=== PATIENT | female | born 2000 | race Two or more races ===

== ENCOUNTER 2021-07-23 17:32 | Inpatient (IN) | payer OTHER, SELFPAY ==
[2021-07-23 17:45] VITALS: BP 117/58; PULSE 77; RESP 18; TEMP 36.7; O2SAT 97
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
[2021-07-24] MEDS: Acetaminophen 325 MG TABLET 650 MG PO ×2 (00:23→10:15)
[2021-07-24] MEDS: traZODone HCL 50 MG TABLET PO ×4 (01:44→23:32)
--- NOTE | 2021-07-24 01:56 | PC.NURSE ---
Patient refused Flu Vaccine. Refused Flagyl.
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
[2021-07-24 08:30] VITALS: BP 127/70; PULSE 80; RESP 16; TEMP 36.9; O2SAT 98
[2021-07-24] MEDS: metroNIDAZOLE 500 MG TABLET PO ×2 (11:33→22:02)
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
--- NOTE | 2021-07-24 16:29 | HO.PM.IMCN ---
History of Present Illness Data of Consult Service Date: 07/24/21 Primary Care Provider: Unknown Physician HPI 21 year female with no medical issues admitted to inpatient psych for depression and suicide indeation. She has no acute medical issues at this time. Review of Systems Review of Systems: Gen: no fever Resp: no sob, no cough CV: no chest, no WALKER, no leg edema GI: No n/v, no abd pain Neuro: No confusion Yes all other systems are reviewed and are negative PMFSH Social History Household Members: Family Housing: House Do you presently have visiting nurse or other home services: No Unable to assess alcohol history related to: Refusing to respond Patient Tobacco Use Status: Never used Tobacco Use of substances other than those prescribed or required for medical reasons: Refusing to respond Currently Displaying Signs/Symptoms of Drug Intoxication Withdrawal: No Spiritual Healthcare Practices: Patient declined to participate in admission process. Protestant Healthcare Practices: Patient declined to participate in admission process. Cultural Healthcare Practices: Patient declined to participate in admission process. Advance Directives: No Advance Directives Information Provided: No Do you have thoughts of harming others: None Do you have a plan to hurt others: No Plan Recently lost weight without trying: Yes How much weight loss: 24-33 pounds Eating poorly because of decreased appetite: No Nutrition screen score: 5 Nutrition Risks: No Nutritional Risk Patient : No : No Poor oral hygiene: No Meds Allergies Allergy/AdvReac Type Severity Reaction Status Date / Time No Known Allergies Allergy Verified 07/23/21 18:35 Active Medications: Current Medications Acetaminophen (Acetaminophen 325 Mg Tablet) 650 mg PO Q6H PRN PRN Reason: Headache/Pain Mild Scale (1-3) Last Admin: 07/24/21 10:15 Dose: 650 mg Documented by: Al Hydroxide/Mg Hydroxide (Magnesium Hydrox/Alum Hydrox 30 Ml Oral.Susp) 30 ml PO Q6H PRN PRN Reason: Heartburn/Nausea Hydroxyzine HCl (Hydroxyzine Hcl 25 Mg Tablet) 25 mg PO Q6H PRN PRN Reason: Anxiety Magnesium Hydroxide (Milk Of Magnesia 30 Ml Oral.Susp) 30 ml PO DAILY PRN PRN Reason: Constipation Metronidazole (Metronidazole 500 Mg Tablet) 500 mg PO Q12H ROSA Stop: 07/29/21 22:59 Last Admin: 07/24/21 11:33 Dose: 500 mg Documented by: Olanzapine (Olanzapine 2.5 Mg Tablet) 2.5 mg PO BEDTIME ROSA Trazodone HCl (Trazodone Hcl 50 Mg Tablet) 50 mg PO BEDTIME PRN PRN Reason: Insomnia Last Admin: 07/24/21 02:41 Dose: 50 mg Documented by: Physical Exam Vital Signs and Narrative: Vital Signs: Last Vital Signs Temp 98.1 F 07/23/21 17:45 Pulse 77 07/23/21 17:45 Resp 18 07/23/21 17:45 BP 117/58 L 07/23/21 17:45 Pulse Ox 97 07/23/21 17:45
--- NOTE | 2021-07-24 16:48 | PM.EVENT ---
Event Note Date of Service: 07/24/21 Event Note: RN of the shift accompanied me evaluate patient. Of sound mind, she declined medical evaluation at this time. I asked that the hospitalist be recontacted if there is a need for medical evaluation.
[2021-07-24] MEDS: OLANZapine 2.5 MG TABLET PO (22:02)
[2021-07-24 22:05] VITALS: BP 101/61; PULSE 95; RESP 16; TEMP 36.5; O2SAT 98
[2021-07-25 09:00] VITALS: BP 120/62; PULSE 77; RESP 16; TEMP 37.1; O2SAT 99
--- NOTE | 2021-07-25 11:43 | HO.PSYCHPN ---
Subjective Subjective Date of Service: 07/25/21 Reason For Visit: MDD single episode, adjustment disorder Subjective Notes: Conditional Voluntary Interim History: The nursing staff reported that she slept at night. On interview, the patient reported that all and is a been med her drooling next morning, she denies over-sedation. On interview she stated that she feels is safe but she is scared of the witchcraft around of the unit. She still complains of paranoid delusions Mental Status Exam Mental Status Exam Patient Appearance: Well Grooomed Patient Orientation: Person and Situation Level of Consciousness: Awake Patient Behavior: Cooperative Mood Description: Withdrawn Affect Description: Constricted Patient Cognition Impaired: No Ability to Follow Directions: Excellent Speech Pattern: Clear Memory Description: Intact Hallucinations: Auditory Delusions: Paranoid Ideation Thought Process: Linear Thought Content: positive for Circumstantial Judgement: Fair Diagnostics Vital Signs (24Hr): Vital Signs - 24 hr 07/24/21 22:05 Temperature 97.7 F Pulse Rate 95 Respiratory Rate 16 Blood Pressure 101/61 Pulse Oximetry 98 Medications Medications Current Medications Acetaminophen (Acetaminophen 325 Mg Tablet) 650 mg PO Q6H PRN PRN Reason: Headache/Pain Mild Scale (1-3) Last Admin: 07/24/21 10:15 Dose: 650 mg Documented by: Al Hydroxide/Mg Hydroxide (Magnesium Hydrox/Alum Hydrox 30 Ml Oral.Susp) 30 ml PO Q6H PRN PRN Reason: Heartburn/Nausea Hydroxyzine HCl (Hydroxyzine Hcl 25 Mg Tablet) 25 mg PO Q6H PRN PRN Reason: Anxiety Magnesium Hydroxide (Milk Of Magnesia 30 Ml Oral.Susp) 30 ml PO DAILY PRN PRN Reason: Constipation Metronidazole (Metronidazole 500 Mg Tablet) 500 mg PO Q12H ROSA Stop: 07/29/21 22:59 Last Admin: 07/24/21 22:02 Dose: 500 mg Documented by: Olanzapine (Olanzapine 2.5 Mg Tablet) 2.5 mg PO BEDTIME ROSA Last Admin: 07/24/21 22:02 Dose: 2.5 mg Documented by: Trazodone HCl (Trazodone Hcl 50 Mg Tablet) 50 mg PO BEDTIME PRN PRN Reason: Insomnia Last Admin: 07/24/21 23:32 Dose: 50 mg Documented by: Allergies Allergies Allergy/AdvReac Type Severity Reaction Status Date / Time No Known Allergies Allergy Verified 07/23/21 18:35 Assessment & Plan Assessment & Plan (1) Psychosis: Status: Acute Code(s): F29 - Unspecified psychosis not due to a substance or known physiological condition (2) Major depressive disorder: Status: Acute Code(s): F32.9 - Major depressive disorder, single episode, unspecified Plan The patient is a young adult female, referred from the community after her brother call crisis since she verbalized suicidal ideation. Initially, she was uncooperative with crisis and she was not safe. There was the report of suicidal ideation but later on, on admission we realized that the patient has the lucent thinking, disorganized thought process and paranoia. She was started on Zyprexa. Plan 1. Continue Zyprexa as prescribed. 2. Gather collateral information. 3. Reassessment with more information I spent ___20___ minutes with the patient and/or on the patient floor today, greater than?50% of which was spent counseling/coordinating care. Reason for contiued inpatient stay Substantial Risk for: inability to function, rapid decompensation and med/psych decompensation
[2021-07-25] MEDS: metroNIDAZOLE 500 MG TABLET PO ×2 (11:47→22:40)
[2021-07-25 18:00] VITALS: BP 106/60; PULSE 95; RESP 18; TEMP 36.5; O2SAT 98
[2021-07-25] MEDS: hydrOXYzine HCL 25 MG TABLET PO (22:40)
[2021-07-25] MEDS: traZODone HCL 50 MG TABLET PO ×2 (22:40→23:36)
[2021-07-26 09:22] VITALS: BP 118/69; PULSE 83; RESP 16; TEMP 36.8; O2SAT 97
[2021-07-26] MEDS: metroNIDAZOLE 500 MG TABLET PO ×2 (12:20→22:15)
--- NOTE | 2021-07-26 13:42 | P.PNPSI_ITS ---
Subjective Subjective Date of Service: 07/26/21 Reason For Visit: MDD single episode, adjustment disorder Interim History: pt seen in [facility], asked MD to see her later. MD saw another pt and then RN informed MD that pt was ready to speak with MD. pt preferred interview in her room and expressed irritation that MD did not know it was her preference for interviews to be held in her room. once in the room she sat on her bed and attempted to transcribe much of the discussion. MD educated her about psychosis and reviewed symptoms she has been exhibiting which are consistent with the diagnosis. pt was very defensive and critical and was not receptive to the information. she had constructed a cross, which was on her bed-side table, and she informed MD that xu on that cross. she also made a strong statement to MD toward the close of the interview, in the name of xu felix! she scoffed at MD's opinions and was generally derisive. she stated she did not like the medication which had been provided for her and she would not be taking it. she requested melatonin, which was ordered. per staff, according to pt's brother pt has recently become depressed and psychotic. both parents have psychotic disorder. expressing SI recently, lost 27 lbs in past few months. poor boundaries with male peers. Mental Status Exam Mental Status Exam Narrative: midrisherin-quentin byers, hospital attire on overtop. adequately groomed. cooperative with interview. fair eye contact. no PMA/PMR. speech incr in amount, nml rate and tone, decr latency. thoughts religiously preoccupied, paranoid. appeared delusional regarding MD's intentions toward her. affect angry/irritable. no SI/HI/AVH expressed. Diagnostics Vital Signs (24Hr): Vital Signs - 24 hr 07/25/21 18:00 07/26/21 09:22 Temperature 97.7 F 98.3 F Pulse Rate 95 83 Respiratory Rate 18 16 Blood Pressure 106/60 118/69 Pulse Oximetry 98 97 Medications Medications Current Medications Acetaminophen (Acetaminophen 325 Mg Tablet) 650 mg PO Q6H PRN PRN Reason: Headache/Pain Mild Scale (1-3) Last Admin: 07/24/21 10:15 Dose: 650 mg Documented by: Al Hydroxide/Mg Hydroxide (Magnesium Hydrox/Alum Hydrox 30 Ml Oral.Susp) 30 ml PO Q6H PRN PRN Reason: Heartburn/Nausea Hydroxyzine HCl (Hydroxyzine Hcl 25 Mg Tablet) 25 mg PO Q6H PRN PRN Reason: Anxiety Last Admin: 07/25/21 22:40 Dose: 25 mg Documented by: Magnesium Hydroxide (Milk Of Magnesia 30 Ml Oral.Susp) 30 ml PO DAILY PRN PRN Reason: Constipation Melatonin (Melatonin 3 Mg Tablet) 3 mg PO BEDTIME ROSA Metronidazole (Metronidazole 500 Mg Tablet) 500 mg PO Q12H ROSA Stop: 07/29/21 22:59 Last Admin: 07/26/21 12:20 Dose: 500 mg Documented by: Patient Own Med- (Daily Probiotic) 1 each PO DAILY ROSA Last Admin: 07/26/21 09:13 Dose: 1 each Documented by: Olanzapine (Olanzapine 2.5 Mg Tablet) 2.5 mg PO BEDTIME ROSA Last Admin: 07/25/21 22:42 Dose: Not Given Documented by: Trazodone HCl (Trazodone Hcl 50 Mg Tablet) 50 mg PO BEDTIME PRN PRN Reason: Insomnia Last Admin: 07/25/21 23:36 Dose: 50 mg Documented by: Allergies Allergies Allergy/AdvReac Type Severity Reaction Status Date / Time No Known Allergies Allergy Verified 07/23/21 18:35 Assessment & Plan Assessment & Plan (1) Psychosis: Status: Acute Code(s): F29 - Unspecified psychosis not due to a substance or known physiological condition (2) Major depressive disorder: Status: Acute Code(s): F32.9 - Major depressive disorder, single episode, unspecified Plan The patient is a young adult female, referred from the community after her brother call crisis since she verbalized suicidal ideation. Initially, she was uncooperative with crisis and she was not safe. There was the report of suicidal ideation but later on, on admission we realized that the patient has the lucent thinking, disorganized thought process and paranoia. She was started on Zyprexa. Plan 1. Continue Zyprexa as prescribed. 2. Gather collateral information. 3. Reassessment with more information I spent ___25___ minutes with the patient and/or on the patient floor today, greater than?50% of which was spent counseling/coordinating care. Reason for contiued inpatient stay Substantial Risk for: harm to self, inability to function and rapid decompensation
[2021-07-26] MEDS: Acetaminophen 325 MG TABLET 650 MG PO (16:52)
[2021-07-26 16:57] VITALS: BMI 19.9
[2021-07-26] MEDS: hydrOXYzine HCL 25 MG TABLET PO (17:53)
[2021-07-26 18:00] VITALS: BP 117/72; PULSE 88; RESP 16; TEMP 36.7; O2SAT 98
[2021-07-26] MEDS: OLANZapine 2.5 MG TABLET PO (20:06)
[2021-07-26] MEDS: Milk of Magnesia 30 ML ORAL.SUSP PO (20:06)
[2021-07-26] MEDS: Ibuprofen 600 MG TABLET PO (20:06)
[2021-07-26] MEDS: Melatonin 3 MG TABLET PO (20:06)
[2021-07-26] MEDS: traZODone HCL 50 MG TABLET PO ×2 (21:15→22:15)
[2021-07-27] MEDS: metroNIDAZOLE 500 MG TABLET PO ×2 (11:18→21:35)
[2021-07-27] MEDS: hydrOXYzine HCL 25 MG TABLET PO ×2 (11:53→21:35)
[2021-07-27] MEDS: Acetaminophen 325 MG TABLET 650 MG PO ×2 (12:48→18:49)
[2021-07-27] MEDS: Ibuprofen 600 MG TABLET PO (13:55)
[2021-07-27] MEDS: LORazepam 1 MG TABLET 2 MG PO (15:51)
--- NOTE | 2021-07-27 17:16 | HO.PSYCHPN ---
Subjective Subjective Date of Service: 07/27/21 Reason For Visit: MDD single episode, adjustment disorder Interim History: mtg held with brother today for 1 hour, SW present. met with pt in her room. relentlessly critical, negative regarding everything about her care here. saying she needs some medication, which she later explains would be to help her relax here. saying a peer talks about worshipping the devil and put his hands around her throat (no evidence to support the claim). nothing helps, nothing works. per staff, denies anx/dep. cut short 1:1 mtg. safe, visible in milieu. watching TV, attending groups. irritable, withdrawn. slept 6-7 hours. religiously preoccupied. rash on torso. Mental Status Exam Mental Status Exam Narrative: adequately dressed and groomed, hospital attire. cooperative with interview. fair eye contact. no PMA/PMR. speech incr in amount, nml rate and tone, decr latency. thoughts religiously preoccupied, paranoid. affect angry/irritable. no SI/HI/AVH expressed. Diagnostics Vital Signs (24Hr): Vital Signs - 24 hr 07/26/21 18:00 Temperature 98.1 F Pulse Rate 88 Respiratory Rate 16 Blood Pressure 117/72 Pulse Oximetry 98 BMI result Body Mass Index 19.9 Medications Medications Current Medications Acetaminophen (Acetaminophen 325 Mg Tablet) 650 mg PO Q6H PRN PRN Reason: Headache/Pain Mild Scale (1-3) Last Admin: 07/27/21 12:48 Dose: 650 mg Documented by: Al Hydroxide/Mg Hydroxide (Magnesium Hydrox/Alum Hydrox 30 Ml Oral.Susp) 30 ml PO Q6H PRN PRN Reason: Heartburn/Nausea Bisacodyl (Bisacodyl 5 Mg Tablet.Dr) 10 mg PO DAILY PRN PRN Reason: Constipation Hydroxyzine HCl (Hydroxyzine Hcl 25 Mg Tablet) 25 mg PO Q6H PRN PRN Reason: Anxiety Last Admin: 07/27/21 11:53 Dose: 25 mg Documented by: Ibuprofen (Ibuprofen 600 Mg Tablet) 600 mg PO Q6H PRN PRN Reason: Pain, Mild (Pain Scale 1-3) Last Admin: 07/27/21 13:55 Dose: 600 mg Documented by: Magnesium Hydroxide (Milk Of Magnesia 30 Ml Oral.Susp) 30 ml PO DAILY PRN PRN Reason: Constipation Last Admin: 07/26/21 20:06 Dose: 30 ml Documented by: Melatonin (Melatonin 3 Mg Tablet) 3 mg PO BEDTIME ROSA Last Admin: 07/26/21 20:06 Dose: 3 mg Documented by: Metronidazole (Metronidazole 500 Mg Tablet) 500 mg PO Q12H ROSA Stop: 07/29/21 22:59 Last Admin: 07/27/21 11:18 Dose: 500 mg Documented by: Patient Own Med- (Daily Probiotic) 1 each PO DAILY ROSA Last Admin: 07/27/21 09:55 Dose: 1 each Documented by: Olanzapine (Olanzapine 2.5 Mg Tablet) 2.5 mg PO BEDTIME ROSA Last Admin: 07/26/21 20:06 Dose: 2.5 mg Documented by: Olanzapine (Olanzapine 2.5 Mg Tablet) 2.5 mg PO Q4H PRN PRN Reason: agitation Trazodone HCl (Trazodone Hcl 50 Mg Tablet) 50 mg PO BEDTIME PRN PRN Reason: Insomnia Last Admin: 07/26/21 22:15 Dose: 50 mg Documented by: Allergies Allergies Allergy/AdvReac Type Severity Reaction Status Date / Time No Known Allergies Allergy Verified 07/23/21 18:35 Assessment & Plan Assessment & Plan (1) Psychosis: Status: Acute Code(s): F29 - Unspecified psychosis not due to a substance or known physiological condition (2) Major depressive disorder: Status: Acute Code(s): F32.9 - Major depressive disorder, single episode, unspecified Plan The patient is a young adult female, referred from the community after her brother call crisis since she verbalized suicidal ideation. Initially, she was uncooperative with crisis and she was not safe. There was the report of suicidal ideation but later on, on admission we realized that the patient has the lucent thinking, disorganized thought process and paranoia. She was started on Zyprexa. Plan 1. Continue Zyprexa as prescribed. 2. Gather collateral information. 3. Reassessment with more information I spent ___90___ minutes with the patient and/or on the patient floor today, greater than?50% of which was spent counseling/coordinating care. Reason for contiued inpatient stay Substantial Risk for: inability to function and rapid decompensation
[2021-07-27 20:55] VITALS: PULSE 84; TEMP 36.7; O2SAT 99
[2021-07-27] MEDS: Melatonin 3 MG TABLET PO (21:11)
[2021-07-27] MEDS: OLANZapine 2.5 MG TABLET PO ×2 (21:11→23:23)
[2021-07-27] MEDS: traZODone HCL 50 MG TABLET PO ×2 (21:35→22:59)
[2021-07-28 06:00] VITALS: BP 104/60; PULSE 95; RESP 16; TEMP 36.7; O2SAT 98
[2021-07-28] MEDS: metroNIDAZOLE 500 MG TABLET PO ×2 (10:44→21:22)
[2021-07-28] MEDS: hydrOXYzine HCL 25 MG TABLET PO (10:44)
[2021-07-28] MEDS: LORazepam 1 MG TABLET PO (12:13)
[2021-07-28] MEDS: OLANZapine 2.5 MG TABLET PO ×3 (12:13→22:32)
--- NOTE | 2021-07-28 14:30 | P.PNPSI_ITS ---
Subjective Subjective Date of Service: 07/28/21 Reason For Visit: MDD single episode, adjustment disorder Interim History: met with pt both individually and then with SW present. pt appears much more positively disposed toward medication and staff today. she actually took 5 mg of zyprexa last night in order to sleep. she agrees to have that scheduled as well as ativan 2 mg at HS to help with sleep. meeting with SW and pt establishes expectations for length of hospitalization and behaviors that signal improvement (sleep, less sikhism preoccupation, even mood and stable interactions with peers and staff). per staff, tearful, dep/anx, feeling caged- in and frightened. frsutrated, angry. better off . later in the day denies depression. states she doesn't trust anybody. had a visit with mother, who told her she does not have mental illness and does not need to take medication. was a little anxious and depressed to be here on eves. med- compliant, some relief from constipation. good effect from ativan, asking for more. Mental Status Exam Mental Status Exam Narrative: adequately dressed and groomed, hospital attire. cooperative with interview. good eye contact. no PMA/PMR. speech incr in amount, nml rate and tone, decr latency. thoughts less religiously preoccupied and more trusting. affect calm. no SI/HI/AVH expressed. Diagnostics Vital Signs (24Hr): Vital Signs - 24 hr 07/27/21 20:55 07/28/21 06:00 Temperature 98.1 F 98.0 F Pulse Rate 84 95 Respiratory Rate 16 Blood Pressure 104/60 Pulse Oximetry 99 98 BMI result Body Mass Index 19.9 Medications Medications Current Medications Acetaminophen (Acetaminophen 325 Mg Tablet) 650 mg PO Q6H PRN PRN Reason: Headache/Pain Mild Scale (1-3) Last Admin: 07/27/21 18:49 Dose: 650 mg Documented by: Al Hydroxide/Mg Hydroxide (Magnesium Hydrox/Alum Hydrox 30 Ml Oral.Susp) 30 ml PO Q6H PRN PRN Reason: Heartburn/Nausea Bisacodyl (Bisacodyl 5 Mg Tablet.) 10 mg PO DAILY PRN PRN Reason: Constipation Hydroxyzine HCl (Hydroxyzine Hcl 50 Mg Tablet) 50 mg PO Q4H PRN PRN Reason: Anxiety Ibuprofen (Ibuprofen 600 Mg Tablet) 600 mg PO Q6H PRN PRN Reason: Pain, Mild (Pain Scale 1-3) Last Admin: 07/27/21 13:55 Dose: 600 mg Documented by: Lorazepam (Lorazepam 1 Mg Tablet) 1 mg PO Q4H PRN PRN Reason: agitation Last Admin: 07/28/21 12:13 Dose: 1 mg Documented by: Lorazepam (Lorazepam 1 Mg Tablet) 2 mg PO BEDTIME ROSA Magnesium Hydroxide (Milk Of Magnesia 30 Ml Oral.Susp) 30 ml PO DAILY PRN PRN Reason: Constipation Last Admin: 07/26/21 20:06 Dose: 30 ml Documented by: Melatonin (Melatonin 3 Mg Tablet) 3 mg PO BEDTIME ROSA Last Admin: 07/27/21 21:11 Dose: 3 mg Documented by: Metronidazole (Metronidazole 500 Mg Tablet) 500 mg PO Q12H ROSA Stop: 07/29/21 22:59 Last Admin: 07/28/21 10:44 Dose: 500 mg Documented by: Patient Own Med- (Daily Probiotic) 1 each PO DAILY ROSA Last Admin: 07/28/21 08:55 Dose: 1 each Documented by: Olanzapine (Olanzapine 2.5 Mg Tablet) 2.5 mg PO Q4H PRN PRN Reason: agitation Last Admin: 07/28/21 12:13 Dose: 2.5 mg Documented by: Olanzapine (Olanzapine 5 Mg Tablet) 5 mg PO BEDTIME ROSA Trazodone HCl (Trazodone Hcl 50 Mg Tablet) 50 mg PO BEDTIME PRN PRN Reason: Insomnia Last Admin: 07/27/21 22:59 Dose: 50 mg Documented by: Allergies Allergies Allergy/AdvReac Type Severity Reaction Status Date / Time No Known Allergies Allergy Verified 07/23/21 18:35 Assessment & Plan Assessment & Plan (1) Psychosis: Status: Acute Code(s): F29 - Unspecified psychosis not due to a substance or known physiological condition (2) Major depressive disorder: Status: Acute Code(s): F32.9 - Major depressive disorder, single episode, unspecified Plan The patient is a young adult female, referred from the community after her brother call crisis since she verbalized suicidal ideation. Initially, she was uncooperative with crisis and she was not safe. There was the report of suicidal ideation but later on, on admission we realized that the patient has the lucent thinking, disorganized thought process and paranoia. She was started on Zyprexa. Plan 1. Continue Zyprexa as prescribed. dosing increased from 2.5 mg QHS to 5 mg QHS as of 07/28, ativan 2 mg at HS added as well. 2. dispo - pending stabilization I spent ___40___ minutes with the patient and/or on the patient floor today, greater than?50% of which was spent counseling/coordinating care. Reason for contiued inpatient stay Substantial Risk for: inability to function and rapid decompensation
--- NOTE | 2021-07-28 15:13 | MHC.CLN ---
NUTRITION WEIGHT LOSS REPORTED UPON ADMISSION. ATTEMPTED TO VISIT PATIENT ON 07/26 AND AGAIN TODAY. ASKED IF I COULD SPEAK TO HER IN HER ROOM AND SHE DID NOT WANT TO SPEAK WITH ME. DIET=REGULAR. BMI=19.9. NO ADDITIONAL NUTRITION INTERVENTIONS AT THIS TIME.
[2021-07-28] MEDS: hydrOXYzine HCL 50 MG TABLET PO ×2 (16:32→21:22)
[2021-07-28] MEDS: Ibuprofen 600 MG TABLET PO (19:32)
[2021-07-28] MEDS: LORazepam 1 MG TABLET 2 MG PO (21:22)
[2021-07-28] MEDS: Melatonin 3 MG TABLET PO (21:22)
[2021-07-28] MEDS: OLANZapine 5 MG TABLET PO (21:22)
[2021-07-28 21:25] VITALS: RESP 16
[2021-07-28] MEDS: traZODone HCL 50 MG TABLET PO (22:32)
[2021-07-29 08:54] VITALS: BP 97/52; PULSE 67; RESP 17; TEMP 36.9; O2SAT 97
[2021-07-29] MEDS: metroNIDAZOLE 500 MG TABLET PO ×2 (10:25→21:24)
[2021-07-29] MEDS: LORazepam 1 MG TABLET 2 MG PO ×2 (10:25→21:18)
[2021-07-29] MEDS: OLANZapine 5 MG TABLET PO (10:26)
[2021-07-29] MEDS: Acetaminophen 325 MG TABLET 650 MG PO ×2 (11:11→21:48)
[2021-07-29] MEDS: hydrOXYzine HCL 50 MG TABLET PO ×2 (11:47→21:23)
[2021-07-29 12:10] VITALS: BMI 20.5
--- NOTE | 2021-07-29 14:11 | P.PNPSI_ITS ---
Subjective Subjective Date of Service: 07/29/21 Reason For Visit: MDD single episode, adjustment disorder Interim History: pt seen seated in milieu crying, comes to interview room. states staff just tried to interview her and asked her if she was feeling better, and she isn't. she feels she doesn't have the right answer and is going to be here forever. states she needs more medication, the ativan 1 mg and zyprexa 2.5 mg PRNs are inadequate. MD raises dosing to 2 mg and 5 mg respectively, and pt agrees to try this morning. pt also agrees to have HS zyprexa increased to 10 mg. per staff, attending some groups but leaves shortly after they begin due to some reactivity. poor sleep - up and down all NOC per staff. Mental Status Exam Mental Status Exam Narrative: adequately dressed and groomed, hospital attire. cooperative with interview. good eye contact. no PMA/PMR. speech incr in amount, nml rate and tone, decr latency. thoughts less religiously preoccupied and more trusting. affect mod- labile and tearful. no SI/HI/AVH expressed. Diagnostics Vital Signs (24Hr): Vital Signs - 24 hr 07/28/21 21:25 07/29/21 08:54 Temperature 98.4 F Pulse Rate 67 Respiratory Rate 16 17 Blood Pressure 97/52 L Pulse Oximetry 97 BMI result Body Mass Index 20.5 Medications Medications Current Medications Acetaminophen (Acetaminophen 325 Mg Tablet) 650 mg PO Q6H PRN PRN Reason: Headache/Pain Mild Scale (1-3) Last Admin: 07/29/21 11:11 Dose: 650 mg Documented by: Al Hydroxide/Mg Hydroxide (Magnesium Hydrox/Alum Hydrox 30 Ml Oral.Susp) 30 ml PO Q6H PRN PRN Reason: Heartburn/Nausea Bisacodyl (Bisacodyl 5 Mg Tablet.) 10 mg PO DAILY PRN PRN Reason: Constipation Hydroxyzine HCl (Hydroxyzine Hcl 50 Mg Tablet) 50 mg PO Q4H PRN PRN Reason: Anxiety Last Admin: 07/29/21 11:47 Dose: 50 mg Documented by: Ibuprofen (Ibuprofen 600 Mg Tablet) 600 mg PO Q6H PRN PRN Reason: Pain, Mild (Pain Scale 1-3) Last Admin: 07/28/21 19:32 Dose: 600 mg Documented by: Lorazepam (Lorazepam 1 Mg Tablet) 2 mg PO BEDTIME ROSA Last Admin: 07/28/21 21:22 Dose: 2 mg Documented by: Lorazepam (Lorazepam 1 Mg Tablet) 2 mg PO Q4H PRN PRN Reason: agitation Last Admin: 07/29/21 10:25 Dose: 2 mg Documented by: Magnesium Hydroxide (Milk Of Magnesia 30 Ml Oral.Susp) 30 ml PO DAILY PRN PRN Reason: Constipation Last Admin: 07/26/21 20:06 Dose: 30 ml Documented by: Melatonin (Melatonin 3 Mg Tablet) 3 mg PO BEDTIME ROSA Last Admin: 07/28/21 21:22 Dose: 3 mg Documented by: Metronidazole (Metronidazole 500 Mg Tablet) 500 mg PO Q12H ROSA Stop: 07/29/21 22:59 Last Admin: 07/29/21 10:25 Dose: 500 mg Documented by: Patient Own Med- (Daily Probiotic) 1 each PO DAILY ROSA Last Admin: 07/29/21 10:25 Dose: 1 each Documented by: Olanzapine (Olanzapine 10 Mg Tablet) 10 mg PO BEDTIME ROSA Olanzapine (Olanzapine 5 Mg Tablet) 5 mg PO Q4H PRN PRN Reason: agitation Last Admin: 07/29/21 10:26 Dose: 5 mg Documented by: Trazodone HCl (Trazodone Hcl 50 Mg Tablet) 50 mg PO BEDTIME PRN PRN Reason: Insomnia Last Admin: 07/28/21 22:32 Dose: 50 mg Documented by: Allergies Allergies Allergy/AdvReac Type Severity Reaction Status Date / Time No Known Allergies Allergy Verified 07/23/21 18:35 Assessment & Plan Assessment & Plan (1) Psychosis: Status: Acute Code(s): F29 - Unspecified psychosis not due to a substance or known physiological condition (2) Major depressive disorder: Status: Acute Code(s): F32.9 - Major depressive disorder, single episode, unspecified Plan The patient is a young adult female, referred from the community after her brother call crisis since she verbalized suicidal ideation. Initially, she was uncooperative with crisis and she was not safe. There was the report of suicidal ideation but later on, on admission we realized that the patient has the lucent thinking, disorganized thought process and paranoia. She was started on Zyprexa. Plan 1. Continue Zyprexa as prescribed. dosing increased from 2.5 mg QHS to 5 mg QHS as of 07/28, ativan 2 mg at HS added as well. PRN doses of ativan increased to 2 mg and PRN doses of zyprexa increased to 5 mg as of 07/29. HS zyprexa increased to 10 mg as of 07/29. T/C addition of lithium, as pt is displaying irritability, lability, psychosis, and sleep-wake cycle disturbance. 2. dispo - pending stabilization I spent __35____ minutes with the patient and/or on the patient floor today, greater than?50% of which was spent counseling/coordinating care. Reason for contiued inpatient stay Substantial Risk for: inability to function and rapid decompensation
[2021-07-29 18:00] VITALS: BP 111/60; PULSE 75; RESP 16; TEMP 36.7; O2SAT 99
[2021-07-29] MEDS: Melatonin 3 MG TABLET PO (21:18)
[2021-07-29] MEDS: OLANZapine 10 MG TABLET PO (21:18)
[2021-07-29] MEDS: traZODone HCL 50 MG TABLET PO (22:14)
[2021-07-30] MEDS: traZODone HCL 50 MG TABLET PO ×3 (00:12→23:26)
[2021-07-30] MEDS: Ibuprofen 600 MG TABLET PO (00:14)
[2021-07-30] MEDS: Milk of Magnesia 30 ML ORAL.SUSP PO ×2 (00:15→18:47)
[2021-07-30 08:00] VITALS: BP 97/54; PULSE 73; RESP 17; TEMP 36.7; O2SAT 99
[2021-07-30] MEDS: Acetaminophen 325 MG TABLET 650 MG PO ×2 (08:21→18:47)
[2021-07-30] MEDS: hydrOXYzine HCL 50 MG TABLET PO ×2 (10:33→23:26)
[2021-07-30] MEDS: bisacodyL 5 MG TABLET.DR 10 MG PO (10:33)
[2021-07-30] MEDS: OLANZapine 5 MG TABLET PO ×2 (10:58→18:47)
[2021-07-30] MEDS: LORazepam 1 MG TABLET 2 MG PO ×3 (10:58→21:16)
[2021-07-30] MEDS: LORazepam 1 MG TABLET PO (12:20)
[2021-07-30] MEDS: Lithium Carbonate ER 450 MG TABLET.ER PO ×2 (12:20→21:17)
[2021-07-30] MEDS: OLANZapine 2.5 MG TABLET PO (12:20)
--- NOTE | 2021-07-30 14:32 | HO.PSYCHPN ---
Subjective Subjective Date of Service: 07/30/21 Reason For Visit: MDD single episode, adjustment disorder Interim History: pt found quietly doing art project in the milieu. amenable to interview. states she continues to have racing thoughts even with all of the medications - such as ativan 2 mg and zyprexa 5 mg - and she continues to have difficulty falling asleep even after zyprexa 10 mg at bedtime and 2 mg ativan then as well. possibility of her having bipolar diathesis discussed, and she agrees to lithium 450 BID trial. also asking for auto driver consult due to recent miscarriage and having just finished course of flagyl. per staff, has been attempting to go to groups but does not end up staying very long. asking staff to tell me the right answer so she can go home. declineing to answer questions about her mental health with some staff. taking PRNs. after HS meds also got traz, ibu, and MOM and did not fall asleep until 0100. Mental Status Exam Mental Status Exam Narrative: adequately dressed and groomed, hospital attire. cooperative with interview. good eye contact. no PMA/PMR. speech incr in amount, nml rate and tone, decr latency. thoughts less religiously preoccupied and more trusting. affect mod-labile and tearful. no SI/HI/AVH expressed. Diagnostics Vital Signs (24Hr): Vital Signs - 24 hr 07/29/21 18:00 07/30/21 08:00 Temperature 98.0 F 98.0 F Pulse Rate 75 73 Respiratory Rate 16 17 Blood Pressure 111/60 97/54 L Pulse Oximetry 99 99 BMI result Body Mass Index 20.5 Medications Medications Current Medications Acetaminophen (Acetaminophen 325 Mg Tablet) 650 mg PO Q6H PRN PRN Reason: Headache/Pain Mild Scale (1-3) Last Admin: 07/30/21 08:21 Dose: 650 mg Documented by: Al Hydroxide/Mg Hydroxide (Magnesium Hydrox/Alum Hydrox 30 Ml Oral.Susp) 30 ml PO Q6H PRN PRN Reason: Heartburn/Nausea Bisacodyl (Bisacodyl 5 Mg Tablet.Dr) 10 mg PO DAILY PRN PRN Reason: Constipation Last Admin: 07/30/21 10:33 Dose: 10 mg Documented by: Hydroxyzine HCl (Hydroxyzine Hcl 50 Mg Tablet) 50 mg PO Q4H PRN PRN Reason: Anxiety Last Admin: 07/30/21 10:33 Dose: 50 mg Documented by: Sentinel Carbonate (Sentinel Carbonate Er 450 Mg Tablet.Er) 450 mg PO BID [facility] Last Admin: 07/30/21 12:20 Dose: 450 mg Documented by: Lorazepam (Lorazepam 1 Mg Tablet) 2 mg PO BEDTIME ROSA Last Admin: 07/29/21 21:18 Dose: 2 mg Documented by: Lorazepam (Lorazepam 1 Mg Tablet) 2 mg PO Q4H PRN PRN Reason: agitation Last Admin: 07/30/21 10:58 Dose: 2 mg Documented by: Magnesium Hydroxide (Milk Of Magnesia 30 Ml Oral.Susp) 30 ml PO Q12H PRN PRN Reason: Constipation Melatonin (Melatonin 3 Mg Tablet) 3 mg PO BEDTIME [facility] Last Admin: 07/29/21 21:18 Dose: 3 mg Documented by: Patient Own Med- (Daily Probiotic) 1 each PO DAILY [facility] Last Admin: 07/30/21 08:21 Dose: 1 each Documented by: Olanzapine (Olanzapine 10 Mg Tablet) 10 mg PO BEDTIME ROSA Last Admin: 07/29/21 21:18 Dose: 10 mg Documented by: Olanzapine (Olanzapine 5 Mg Tablet) 5 mg PO Q4H PRN PRN Reason: agitation Last Admin: 07/30/21 10:58 Dose: 5 mg Documented by: Trazodone HCl (Trazodone Hcl 50 Mg Tablet) 50 mg PO BEDTIME PRN PRN Reason: Insomnia Last Admin: 07/30/21 00:12 Dose: 50 mg Documented by: Allergies Allergies Allergy/AdvReac Type Severity Reaction Status Date / Time No Known Allergies Allergy Verified 07/23/21 18:35 Assessment & Plan Assessment & Plan (1) Psychosis: Status: Acute Code(s): F29 - Unspecified psychosis not due to a substance or known physiological condition (2) Major depressive disorder: Status: Acute Code(s): F32.9 - Major depressive disorder, single episode, unspecified Plan The patient is a young adult female, referred from the community after her brother call crisis since she verbalized suicidal ideation. Initially, she was uncooperative with crisis and she was not safe. There was the report of suicidal ideation but later on, on admission we realized that the patient has the lucent thinking, disorganized thought process and paranoia. She was started on Zyprexa. Plan 1. Continue Zyprexa as prescribed. dosing increased from 2.5 mg QHS to 5 mg QHS as of 07/28, ativan 2 mg at HS added as well. PRN doses of ativan increased to 2 mg and PRN doses of zyprexa increased to 5 mg as of 07/29. HS zyprexa increased to 10 mg as of 07/29. added lithium 450 BID 07/30, as pt is displaying irritability, lability, psychosis, and sleep-wake cycle disturbance. 2. dispo - pending stabilization I spent __35____ minutes with the patient and/or on the patient floor today, greater than?50% of which was spent counseling/coordinating care. Reason for contiued inpatient stay Substantial Risk for: inability to function and rapid decompensation
[2021-07-30 21:15] VITALS: BP 101/50; PULSE 93; TEMP 36.8; O2SAT 97
[2021-07-30] MEDS: Melatonin 3 MG TABLET PO (21:17)
[2021-07-30] MEDS: OLANZapine 10 MG TABLET PO (21:17)
[2021-07-31] MEDS: Lithium Carbonate ER 450 MG TABLET.ER PO ×2 (08:18→22:26)
[2021-07-31] MEDS: hydrOXYzine HCL 50 MG TABLET PO ×3 (08:19→19:08)
[2021-07-31] MEDS: Acetaminophen 325 MG TABLET 650 MG PO ×2 (08:21→19:08)
[2021-07-31] MEDS: OLANZapine 5 MG TABLET PO (09:22)
[2021-07-31] MEDS: LORazepam 1 MG TABLET 2 MG PO ×4 (09:39→22:26)
[2021-07-31] MEDS: bisacodyL 5 MG TABLET.DR 10 MG PO (09:42)
[2021-07-31] MEDS: chlorproMAZINE HCl 25 MG TABLET PO ×2 (15:23→20:03)
--- NOTE | 2021-07-31 15:48 | P.PNPSI_ITS ---
Subjective Subjective Date of Service: 07/31/21 Reason For Visit: MDD single episode, adjustment disorder Subjective Notes: Conditional Voluntary Medical Problems Affecting Mental Status: No Interim History: chart reviewed and discussed with Nursing. Patient has reported that she has been able to sleep. Did not her medications are working. Irritable and withdrawn. Hairspring Vibrator attempted to meet with patient multiple times during the day but was sleeping. Eventually woke patient up around lunchtime. She reports feeling anxious and overwhelmed. Reported feeling depressed because she was in the hospital otherwise felt okay. Denied SI. No overt psychosis noted. Reports she does not believe that she has bipolar disorder and therefore does not want to take lithium and also does not like the blood work. Was unable to reflect on concerns around pre-admission mental state etc. Attempted to discuss sleep hygiene and structure. Reports the only medication that has helped her is Tylenol. She was open to potentially utilizing Thorazine for anxiety and sleep and this taking the place of olanzapine. Medication Compliance: Yes Side effects from medications: No Attending Groups: Intermittent Review of Systems Acute medical concerns: No Review of Systems Review of Systems Unremarkable Mental Status Exam Mental Status Exam Narrative: isolated in room. Some irritability on wakening. Speech normal. Anxious and irritable. Denies SI or thoughts of self-harm. No HI. No overt psychosis noted. Insight and judgment is limited around diagnosis and treatment planning Diagnostics Vital Signs (24Hr): Vital Signs - 24 hr 07/30/21 21:15 Temperature 98.3 F Pulse Rate 93 Blood Pressure 101/50 L Pulse Oximetry 97 BMI result Body Mass Index 20.5 Medications Medications Current Medications Acetaminophen (Acetaminophen 325 Mg Tablet) 650 mg PO Q6H PRN PRN Reason: Headache/Pain Mild Scale (1-3) Last Admin: 07/31/21 08:21 Dose: 650 mg Documented by: Al Hydroxide/Mg Hydroxide (Magnesium Hydrox/Alum Hydrox 30 Ml Oral.Susp) 30 ml PO Q6H PRN PRN Reason: Heartburn/Nausea Bisacodyl (Bisacodyl 5 Mg Tablet.) 10 mg PO DAILY PRN PRN Reason: Constipation Last Admin: 07/31/21 09:42 Dose: 10 mg Documented by: Chlorpromazine HCl (Chlorpromazine Hcl 25 Mg Tablet) 25 mg PO BID@0830,1330 ROSA Last Admin: 07/31/21 15:23 Dose: 25 mg Documented by: Chlorpromazine HCl (Chlorpromazine Hcl 25 Mg Tablet) 25 mg PO Q4H PRN PRN Reason: agitation Chlorpromazine HCl (Chlorpromazine Hcl 25 Mg Tablet) 50 mg PO BEDTIME [facility] Hydroxyzine HCl (Hydroxyzine Hcl 50 Mg Tablet) 50 mg PO Q4H PRN PRN Reason: Anxiety Last Admin: 07/31/21 14:25 Dose: 50 mg Documented by: Phoenix Carbonate (Phoenix Carbonate Er 450 Mg Tablet.Er) 450 mg PO BID [facility] Last Admin: 07/31/21 08:18 Dose: 450 mg Documented by: Lorazepam (Lorazepam 1 Mg Tablet) 2 mg PO BEDTIME ROSA Last Admin: 07/30/21 21:16 Dose: 2 mg Documented by: Lorazepam (Lorazepam 1 Mg Tablet) 2 mg PO Q4H PRN PRN Reason: agitation Last Admin: 07/31/21 15:24 Dose: 2 mg Documented by: Magnesium Hydroxide (Milk Of Magnesia 30 Ml Oral.Susp) 30 ml PO Q12H PRN PRN Reason: Constipation Last Admin: 07/30/21 18:47 Dose: 30 ml Documented by: Melatonin (Melatonin 3 Mg Tablet) 3 mg PO BEDTIME [facility] Last Admin: 07/30/21 21:17 Dose: 3 mg Documented by: Patient Own Med- (Daily Probiotic) 1 each PO DAILY [facility] Last Admin: 07/31/21 08:18 Dose: 1 each Documented by: Trazodone HCl (Trazodone Hcl 50 Mg Tablet) 50 mg PO BEDTIME PRN PRN Reason: Insomnia Last Admin: 07/30/21 23:26 Dose: 50 mg Documented by: Allergies Allergies Allergy/AdvReac Type Severity Reaction Status Date / Time No Known Allergies Allergy Verified 07/23/21 18:35 Assessment & Plan Assessment & Plan (1) Psychosis: Status: Acute Code(s): F29 - Unspecified psychosis not due to a substance or known physiological condition (2) Major depressive disorder: Status: Acute Code(s): F32.9 - Major depressive disorder, single episode, unspecified Plan The patient is a young adult female, referred from the community after her brother call crisis since she verbalized suicidal ideation. Initially, she was uncooperative with crisis and she was not safe. There was the report of suicidal ideation but later on, on admission we realized that the patient has the lucent thinking, disorganized thought process and paranoia. She was started on Zyprexa. Plan 1. Continue Zyprexa as prescribed. dosing increased from 2.5 mg QHS to 5 mg QHS as of 07/28, ativan 2 mg at HS added as well. PRN doses of ativan increased to 2 mg and PRN doses of zyprexa increased to 5 mg as of 07/29. HS zyprexa increased to 10 mg as of 07/29. added lithium 450 BID 07/30, as pt is displaying irritability, lability, psychosis, and sleep-wake cycle disturbance. 2. dispo - pending stabilization 07/31: agreed to switch Zyprexa to Thorazine and she did not feel that any francisca efit and she wanted to discontinue same. Start Thorazine 50 mg at bedtime and 25 mg morning and afternoon and 25 mg as needed. Remains reluctant around lithium and ambivalent around continuing this. I spent minutes with the patient and/or on the patient floor today, greater than?50% of which was spent counseling/coordinating care. Patient educated on: diagnosis and medication risk/benefits Reason for contiued inpatient stay Substantial Risk for: inability to function
[2021-07-31 18:00] VITALS: BP 121/63; PULSE 102; TEMP 37.1; O2SAT 98
[2021-07-31] MEDS: chlorproMAZINE HCl 25 MG TABLET 50 MG PO (21:12)
[2021-07-31] MEDS: Melatonin 3 MG TABLET PO (21:12)
[2021-07-31] MEDS: traZODone HCL 50 MG TABLET PO ×2 (21:12→22:26)
[2021-08-01] MEDS: chlorproMAZINE HCl 25 MG TABLET PO ×3 (09:15→21:29)
[2021-08-01] MEDS: LORazepam 1 MG TABLET 2 MG PO (09:21)
[2021-08-01 10:00] VITALS: BP 112/56; PULSE 97; RESP 16; TEMP 36.9; O2SAT 97
[2021-08-01] MEDS: hydrOXYzine HCL 50 MG TABLET PO ×3 (10:16→21:28)
[2021-08-01] MEDS: Acetaminophen 325 MG TABLET 650 MG PO ×2 (10:16→18:19)
[2021-08-01] MEDS: chlorproMAZINE HCl 25 MG TABLET 50 MG PO (13:29)
--- NOTE | 2021-08-01 13:55 | HO.PSYCHPN ---
Subjective Subjective Date of Service: 08/01/21 Reason For Visit: MDD single episode, adjustment disorder Subjective Notes: Conditional Voluntary Interim History: Chart reviewed and discussed with Nursing. Patient continues to report her medications are not working. Frustrated. Reports ativan 2 mg does not impact her- we therefore agreed to DC same rather than increase dose. Discussed thorazine being adjusted. Also does not want to take lithium I am stopping that, I hate needles so am going to stop it . Denied SI. No overt psychosis noted. Still does not agree with diagnosis of bipolar disorder. Still unable to reflect around concerns pre-admission. He ongoing encouragement given around sleep hygiene. Has been in the milieu more today. Medication Compliance: Yes Side effects from medications: No Attending Groups: Intermittent Review of Systems Acute medical concerns: No Review of Systems Review of Systems Unremarkable Mental Status Exam Mental Status Exam Narrative: In milieu today. Seen in room. Normal speech. Anxious and frustrated. Denies SI or thoughts of self-harm. No HI. No overt psychosis noted. Insight and judgment is limited around diagnosis and treatment planning Diagnostics Vital Signs (24Hr): Vital Signs - 24 hr 07/31/21 18:00 08/01/21 10:00 Temperature 98.7 F 98.4 F Pulse Rate 102 H 97 Respiratory Rate 16 Blood Pressure 121/63 112/56 L Pulse Oximetry 98 97 BMI result Body Mass Index 20.5 Medications Medications Current Medications Acetaminophen (Acetaminophen 325 Mg Tablet) 650 mg PO Q6H PRN PRN Reason: Headache/Pain Mild Scale (1-3) Last Admin: 08/01/21 10:16 Dose: 650 mg Documented by: Al Hydroxide/Mg Hydroxide (Magnesium Hydrox/Alum Hydrox 30 Ml Oral.Susp) 30 ml PO Q6H PRN PRN Reason: Heartburn/Nausea Bisacodyl (Bisacodyl 5 Mg Tablet.) 10 mg PO DAILY PRN PRN Reason: Constipation Last Admin: 07/31/21 09:42 Dose: 10 mg Documented by: Chlorpromazine HCl (Chlorpromazine Hcl 25 Mg Tablet) 25 mg PO Q4H PRN PRN Reason: agitation Last Admin: 07/31/21 20:03 Dose: 25 mg Documented by: Chlorpromazine HCl (Chlorpromazine Hcl 25 Mg Tablet) 50 mg PO BID@0830,1330 [facility] Last Admin: 08/01/21 13:29 Dose: 50 mg Documented by: Chlorpromazine HCl (Chlorpromazine Hcl 100 Mg Tablet) 100 mg PO BEDTIME [facility] Hydroxyzine HCl (Hydroxyzine Hcl 50 Mg Tablet) 50 mg PO Q4H PRN PRN Reason: Anxiety Last Admin: 08/01/21 10:16 Dose: 50 mg Documented by: Wailea Carbonate (Wailea Carbonate Er 450 Mg Tablet.Er) 450 mg PO BID [facility] Last Admin: 08/01/21 09:17 Dose: Not Given Documented by: Magnesium Hydroxide (Milk Of Magnesia 30 Ml Oral.Susp) 30 ml PO Q12H PRN PRN Reason: Constipation Last Admin: 07/30/21 18:47 Dose: 30 ml Documented by: Melatonin (Melatonin 3 Mg Tablet) 3 mg PO BEDTIME COUNTS INCLUDE 234 BEDS AT [facility] Last Admin: 07/31/21 21:12 Dose: 3 mg Documented by: Patient Own Med- (Daily Probiotic) 1 each PO DAILY COUNTS INCLUDE 234 BEDS AT THE [facility] Last Admin: 08/01/21 09:15 Dose: 1 each Documented by: Trazodone HCl (Trazodone Hcl 50 Mg Tablet) 50 mg PO BEDTIME PRN PRN Reason: Insomnia Last Admin: 07/31/21 22:26 Dose: 50 mg Documented by: Allergies Allergies Allergy/AdvReac Type Severity Reaction Status Date / Time No Known Allergies Allergy Verified 07/23/21 18:35 Assessment & Plan Assessment & Plan (1) Psychosis: Status: Acute Code(s): F29 - Unspecified psychosis not due to a substance or known physiological condition (2) Major depressive disorder: Status: Acute Code(s): F32.9 - Major depressive disorder, single episode, unspecified Plan The patient is a young adult female, referred from the community after her brother call crisis since she verbalized suicidal ideation. Initially, she was uncooperative with crisis and she was not safe. There was the report of suicidal ideation but later on, on admission we realized that the patient has the lucent thinking, disorganized thought process and paranoia. She was started on Zyprexa. Plan 1. Continue Zyprexa as prescribed. dosing increased from 2.5 mg QHS to 5 mg QHS as of 07/28, ativan 2 mg at HS added as well. PRN doses of ativan increased to 2 mg and PRN doses of zyprexa increased to 5 mg as of 07/29. HS zyprexa increased to 10 mg as of 07/29. added lithium 450 BID 07/30, as pt is displaying irritability, lability, psychosis, and sleep-wake cycle disturbance. 2. dispo - pending stabilization 08/01: will adjust Thorazine to 25 mg as needed and 50 mg morning and afternoon and 100 mg at bedtime. Will discontinue Ativan rather than increase dose as is been no noticeable change on 2 mg. 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 Primary team can discuss additional treatment planning and medication options.. I spent minutes with the patient and/or on the patient floor today, greater than?50% of which was spent counseling/coordinating care. Reason for contiued inpatient stay Substantial Risk for: harm to self and inability to function
[2021-08-01] MEDS: Lithium Carbonate ER 450 MG TABLET.ER PO (19:59)
[2021-08-01] MEDS: Melatonin 3 MG TABLET PO (19:59)
[2021-08-01] MEDS: traZODone HCL 50 MG TABLET PO ×2 (19:59→21:28)
[2021-08-01] MEDS: chlorproMAZINE HCl 100 MG TABLET PO (19:59)
[2021-08-01 20:02] VITALS: BP 140/63; PULSE 118; RESP 16; TEMP 36.8; O2SAT 97
[2021-08-02] MEDS: chlorproMAZINE HCl 25 MG TABLET PO ×2 (03:24→09:39)
[2021-08-02] MEDS: hydrOXYzine HCL 50 MG TABLET PO ×3 (05:15→16:40)
[2021-08-02] MEDS: Acetaminophen 325 MG TABLET 650 MG PO ×2 (05:15→16:09)
[2021-08-02] MEDS: chlorproMAZINE HCl 25 MG TABLET 50 MG PO ×2 (08:49→16:41)
[2021-08-02 09:08] VITALS: BP 107/59; PULSE 92; RESP 20; TEMP 36.1; O2SAT 98
[2021-08-02] MEDS: bisacodyL 5 MG TABLET.DR 10 MG PO (09:38)
--- NOTE | 2021-08-02 12:10 | PM.GYNCN ---
CUSTOMER EXPERIENCE MANAGER - CN: HPI Data of Consult Consult date: 08/02/21 Requesting Physician: Emmanuel Gallegos Primary Care Provider: Unknown Physician Consult Narrative Narrative: I was on Kasie Gaston who is a 21 year old female admitted on M 3, patient had an 2 months ago followed by 2 menstrual cycles and urine tests according to her at her OBGYN office. The patient developed bacterial vaginosis for which she was treated with Flagyl 500 mg p.o. b.i.d. for 7 days since then the patient is doing well, does not have any vaginal discharge or foul odor, no abdominal/pelvic pain or abnormal uterine bleeding . cc:: CC: Emmanuel Gallegos DIALYSIS RN - Review of Systems Review of Systems ROS Unobtainable: All systems reviewed & are unremarkable except as noted in HPI and below Cardiovascular: Denies Palpatations, Loss of consciousness or Chest pain Respiratory: Denies Cough, Wheezing or Shortness of breath Musculoskeletal: Denies Low back pain Gastrointestinal: Denies Heartburn, Constipation, Diarrhea, Nausea or Vomiting Genitourinary: Denies Pain with urination, Burning with urination or Urinary frequency Neurological: Denies Migranes Psychological: Denies Depression [facility] Social History Social History Household Members: Family Housing: House Do you presently have visiting nurse or other home services: No Unable to assess alcohol history related to: Refusing to respond Patient Tobacco Use Status: Never used Tobacco Use of substances other than those prescribed or required for medical reasons: Refusing to respond Currently Displaying Signs/Symptoms of Drug Intoxication Withdrawal: No Spiritual Healthcare Practices: Patient declined to participate in admission process. Cheondoism Healthcare Practices: Patient declined to participate in admission process. Cultural Healthcare Practices: Patient declined to participate in admission process. Advance Directives: No Advance Directives Information Provided: No Do you have thoughts of harming others: None Do you have a plan to hurt others: No Plan Recently lost weight without trying: Yes How much weight loss: 24-33 pounds Eating poorly because of decreased appetite: No Nutrition screen score: 5 Nutrition Risks: No Nutritional Risk Patient : No : No Poor oral hygiene: No service: No Sexual orientation: Don't Know Meds Allergies Allergy/AdvReac Type Severity Reaction Status Date / Time No Known Allergies Allergy Verified 07/23/21 18:35 Active Medications: Current Medications Acetaminophen (Acetaminophen 325 Mg Tablet) 650 mg PO Q6H PRN PRN Reason: Headache/Pain Mild Scale (1-3) Last Admin: 08/02/21 05:15 Dose: 650 mg Documented by: Al Hydroxide/Mg Hydroxide (Magnesium Hydrox/Alum Hydrox 30 Ml Oral.Susp) 30 ml PO Q6H PRN PRN Reason: Heartburn/Nausea Bisacodyl (Bisacodyl 5 Mg Tablet.Dr) 10 mg PO DAILY PRN PRN Reason: Constipation Last Admin: 08/02/21 09:38 Dose: 10 mg Documented by: Chlorpromazine HCl (Chlorpromazine Hcl 100 Mg Tablet) 100 mg PO BID@0830,1330 [facility] Chlorpromazine HCl (Chlorpromazine Hcl 100 Mg Tablet) 300 mg PO BEDTIME [facility] Chlorpromazine HCl (Chlorpromazine Hcl 25 Mg Tablet) 50 mg PO Q4H PRN PRN Reason: agitation Hydroxyzine HCl (Hydroxyzine Hcl 50 Mg Tablet) 50 mg PO Q4H PRN PRN Reason: Anxiety Last Admin: 08/02/21 09:39 Dose: 50 mg Documented by: Lorazepam (Lorazepam 1 Mg Tablet) 2 mg PO TID [facility] Magnesium Hydroxide (Milk Of Magnesia 30 Ml Oral.Susp) 30 ml PO Q12H PRN PRN Reason: Constipation Last Admin: 07/30/21 18:47 Dose: 30 ml Documented by: Melatonin (Melatonin 3 Mg Tablet) 3 mg PO BEDTIME [facility] Last Admin: 08/01/21 19:59 Dose: 3 mg Documented by: Patient Own Med- (Daily Probiotic) 1 each PO DAILY [facility] Last Admin: 08/02/21 08:48 Dose: 1 each Documented by: Oxcarbazepine (Oxcarbazepine 150 Mg Tablet) 450 mg PO BID [facility] Trazodone HCl (Trazodone Hcl 50 Mg Tablet) 50 mg PO BEDTIME PRN PRN Reason: Insomnia Last Admin: 08/01/21 21:28 Dose: 50 mg Documented by: CUSTOMER EXPERIENCE MANAGER Physical Exam Vitals Vital signs: Temp Pulse Resp BP Pulse Ox 96.9 F 92 20 107/59 L 98 08/02/21 09:08 08/02/21 09:08 08/02/21 09:08 08/02/21 09:08 08/02/21 09:08 BMI result Body Mass Index 20.5 Constitutional General Appearance: Healthy appearing, Well-nourished and Well-developed Psychiatric Mood and Affect: active and alert, normal mood and normal affect Skin Appearance: No rashes and No lesions Lungs Respiratory Effort: No intercostal retractions Auscultation: Clear to auscultation Cardiovascular Auscultation: RRR Abdomen Auscultation/Inspection/Palpation: Normal bowel sounds, Soft, Non-distended and No tenderness Female Genitalia (Pelvic) Bladder/Urethra: Normal meatus Vulva: No lesions Vagina: Nontender and No erythema Cervix: Grossly normal Uterus: Normal size Adnexa/Parametria: Adnexal Tenderness: None, Adnexal Mass: None, Parametrial Tenderness: None and Parametrial Mass: None Assessment and Plan (1) Bacterial vaginosis: Status: Acute GC and chlamydia and BV panel collected, will check the results, if positive will treat accordingly (2) SAB (spontaneous ): Status: Acute Urine test done in the office was negative. Discussed with the patient the different options of control including control pills/Nuvaring, Depo Medroxy Progesterone Acetate, IUD ( levonorgestrel, Copper). All the pros, cons, risks and benefits of each were discussed with the patient.? The patient decided to think about it and get back to us
--- NOTE | 2021-08-02 12:10 | PC.NURSE ---
Patient currently off unit, seeing OBGYN. Staff and security with pt.
[2021-08-02] MEDS: LORazepam 1 MG TABLET 2 MG PO ×3 (12:26→20:44)
[2021-08-02] MEDS: chlorproMAZINE HCl 100 MG TABLET PO (12:27)
[2021-08-02] MEDS: OXcarbazepine 150 MG TABLET 450 MG PO ×2 (12:27→20:44)
--- NOTE | 2021-08-02 12:42 | HO.PSYCHPN ---
Subjective Subjective Date of Service: 08/02/21 Reason For Visit: MDD single episode, adjustment disorder Interim History: long interview with pt today, many attempts at convincing her to take appropriate medication. pt cited fear of needles as her reason for declining lithium, depakote, tegretol. agreeable to trileptal in the end, warned about hypo-natremia risk which would not be surveillable without blood draws. also agreeable to try higher doses of thorazine and have ativan 2 mg added back to her regimen. quandary of pt's saying the medications are not helping her, declining to comply with recommended treatment, and demanding more and higher dose medication. per staff, trying to slow her mind down but says nothing is working. ativan DCed, thorazine started and somewhat helpful. some hope that pristine, which she believes involves exactly the treatment she needs, is getting closer. endorsing SI. has made a friend on the unit who makes her laugh. stopped lithium as she does not want to comply with blood draws. Mental Status Exam Mental Status Exam Narrative: adequately dressed and groomed, mixed hospital attire and street clothes. cooperative with interview. good eye contact. no PMA/PMR. speech incr in amount, nml rate and tone, decr latency. thoughts not religiously preoccupied and more trusting, yet conflictual and blaming. affect irritable and min-labile. no SI/HI/AVH expressed. Diagnostics Vital Signs (24Hr): Vital Signs - 24 hr 08/01/21 20:02 08/02/21 09:08 Temperature 98.3 F 96.9 F Pulse Rate 118 H 92 Respiratory Rate 16 20 Blood Pressure 140/63 H 107/59 L Pulse Oximetry 97 98 BMI result Body Mass Index 20.5 Medications Medications Current Medications Acetaminophen (Acetaminophen 325 Mg Tablet) 650 mg PO Q6H PRN PRN Reason: Headache/Pain Mild Scale (1-3) Last Admin: 08/02/21 05:15 Dose: 650 mg Documented by: Al Hydroxide/Mg Hydroxide (Magnesium Hydrox/Alum Hydrox 30 Ml Oral.Susp) 30 ml PO Q6H PRN PRN Reason: Heartburn/Nausea Bisacodyl (Bisacodyl 5 Mg Tablet.) 10 mg PO DAILY PRN PRN Reason: Constipation Last Admin: 08/02/21 09:38 Dose: 10 mg Documented by: Chlorpromazine HCl (Chlorpromazine Hcl 100 Mg Tablet) 100 mg PO BID@0830,1330 [facility] Last Admin: 08/02/21 12:27 Dose: 100 mg Documented by: Chlorpromazine HCl (Chlorpromazine Hcl 100 Mg Tablet) 300 mg PO BEDTIME [facility] Chlorpromazine HCl (Chlorpromazine Hcl 25 Mg Tablet) 50 mg PO Q4H PRN PRN Reason: agitation Hydroxyzine HCl (Hydroxyzine Hcl 50 Mg Tablet) 50 mg PO Q4H PRN PRN Reason: Anxiety Last Admin: 08/02/21 09:39 Dose: 50 mg Documented by: Lorazepam (Lorazepam 1 Mg Tablet) 2 mg PO TID [facility] Last Admin: 08/02/21 12:26 Dose: 2 mg Documented by: Magnesium Hydroxide (Milk Of Magnesia 30 Ml Oral.Susp) 30 ml PO Q12H PRN PRN Reason: Constipation Last Admin: 07/30/21 18:47 Dose: 30 ml Documented by: Melatonin (Melatonin 3 Mg Tablet) 3 mg PO BEDTIME [facility] Last Admin: 08/01/21 19:59 Dose: 3 mg Documented by: Patient Own Med- (Daily Probiotic) 1 each PO DAILY [facility] Last Admin: 08/02/21 08:48 Dose: 1 each Documented by: Oxcarbazepine (Oxcarbazepine 150 Mg Tablet) 450 mg PO BID [facility] Trazodone HCl (Trazodone Hcl 50 Mg Tablet) 50 mg PO BEDTIME PRN PRN Reason: Insomnia Last Admin: 08/01/21 21:28 Dose: 50 mg Documented by: Allergies Allergies Allergy/AdvReac Type Severity Reaction Status Date / Time No Known Allergies Allergy Verified 07/23/21 18:35 Assessment & Plan Assessment & Plan (1) Bacterial vaginosis: Status: Acute Code(s): N76.0 - Acute vaginitis; B96.89 - Other specified bacterial agents as the cause of diseases classified elsewhere Assessment and Plan: GC and chlamydia and BV panel collected, will check the results, if positive will treat accordingly (2) SAB (spontaneous ): Status: Acute Code(s): O03.9 - Complete or unspecified spontaneous without complication Assessment and Plan: Urine test done in the office was negative. Discussed with the patient the different options of control including control pills/Nuvaring, Depo Medroxy Progesterone Acetate, IUD ( levonorgestrel, Copper). All the pros, cons, risks and benefits of each were discussed with the patient.? The patient decided to think about it and get back to us (3) Gisela: Status: Acute Code(s): F30.9 - Manic episode, unspecified Plan The patient is a young adult female, referred from the community after her brother call crisis since she verbalized suicidal ideation.? Initially, she was uncooperative with crisis and she was not safe.? There was the report of suicidal ideation but later on, on admission we realized that the patient has the lucent thinking, disorganized thought process and paranoia.? She was started on Zyprexa.? 1. zyprexa changed to thorazine 07/31. lithium DC'ed 08/02 as pt took it only 2.5 days at 450 BID then started refusing due to needle phobia. trileptal 450 BID started 08/02. ativan 2 mg with thorazine PRNs. 2. dispo - pending stabilization. I spent __45____ minutes with the patient and/or on the patient floor today, greater than?50% of which was spent counseling/coordinating care. Reason for contiued inpatient stay Substantial Risk for: inability to function and rapid decompensation
[2021-08-02] MEDS: Milk of Magnesia 30 ML ORAL.SUSP PO (16:09)
[2021-08-02 20:32] VITALS: BP 109/58; PULSE 128; RESP 16; TEMP 36.6; O2SAT 98
[2021-08-02] MEDS: chlorproMAZINE HCl 100 MG TABLET 300 MG PO (20:44)
[2021-08-02] MEDS: Melatonin 3 MG TABLET PO (20:44)
[2021-08-03] MEDS: LORazepam 1 MG TABLET 2 MG PO ×3 (08:46→20:55)
[2021-08-03] MEDS: chlorproMAZINE HCl 100 MG TABLET PO ×2 (08:47→13:37)
[2021-08-03] MEDS: OXcarbazepine 150 MG TABLET 450 MG PO (08:47)
[2021-08-03 08:49] VITALS: BP 123/61; PULSE 120; RESP 18; TEMP 36.7; O2SAT 96
[2021-08-03] MEDS: hydrOXYzine HCL 50 MG TABLET PO ×2 (10:08→21:16)
[2021-08-03] MEDS: chlorproMAZINE HCl 25 MG TABLET 50 MG PO ×2 (10:08→21:16)
[2021-08-03] MEDS: Acetaminophen 325 MG TABLET 650 MG PO ×2 (10:09→20:56)
--- NOTE | 2021-08-03 15:18 | HO.PSYCHPN ---
Subjective Subjective Date of Service: 08/03/21 Reason For Visit: MDD single episode, adjustment disorder Interim History: pt presents as somewhat somnolent, despite her denying it. states her mind continues to race despite her body having been slowed down a bit. feels she needs different medication to help slow her mind. pt educated again about lithium, VPA, and tegretol as the proper medications for that, but she is not open to them. MD reviews the use of antipsychotics and benzos for the same purpose, but she is not impressed. she agrees to give trileptal 600 BID a try for now. per staff, irritable this morning. said she slept well. asking for thorazine repeatedly yesterday. c/o racing thoguhts. tachy at 120 bpm. BP 123/61. c/o constipation. Mental Status Exam Mental Status Exam Narrative: adequately dressed and groomed, mixed hospital attire and street clothes. cooperative with interview. fair eye contact. no PMA/PMR. speech nml in amount, nml rate and tone, nml latency. thoughts not religiously preoccupied and more trusting, yet illogical and inflexible. affect mildly irritable and non-labile. no SI/HI/AVH expressed. Diagnostics Vital Signs (24Hr): Vital Signs - 24 hr 08/02/21 20:32 08/03/21 08:49 Temperature 97.8 F 98.0 F Pulse Rate 128 H 120 H Respiratory Rate 16 18 Blood Pressure 109/58 L 123/61 Pulse Oximetry 98 96 BMI result Body Mass Index 20.5 Medications Medications Current Medications Acetaminophen (Acetaminophen 325 Mg Tablet) 650 mg PO Q6H PRN PRN Reason: Headache/Pain Mild Scale (1-3) Last Admin: 08/03/21 10:09 Dose: 650 mg Documented by: Al Hydroxide/Mg Hydroxide (Magnesium Hydrox/Alum Hydrox 30 Ml Oral.Susp) 30 ml PO Q6H PRN PRN Reason: Heartburn/Nausea Bisacodyl (Bisacodyl 5 Mg Tablet.) 10 mg PO DAILY PRN PRN Reason: Constipation Last Admin: 08/02/21 09:38 Dose: 10 mg Documented by: Chlorpromazine HCl (Chlorpromazine Hcl 100 Mg Tablet) 100 mg PO BID@0830,1330 [facility] Last Admin: 08/03/21 13:37 Dose: 100 mg Documented by: Chlorpromazine HCl (Chlorpromazine Hcl 100 Mg Tablet) 300 mg PO BEDTIME [facility] Last Admin: 08/02/21 20:44 Dose: 300 mg Documented by: Chlorpromazine HCl (Chlorpromazine Hcl 25 Mg Tablet) 50 mg PO Q4H PRN PRN Reason: agitation Last Admin: 08/03/21 10:08 Dose: 50 mg Documented by: Hydroxyzine HCl (Hydroxyzine Hcl 50 Mg Tablet) 50 mg PO Q4H PRN PRN Reason: Anxiety Last Admin: 08/03/21 10:08 Dose: 50 mg Documented by: Lorazepam (Lorazepam 1 Mg Tablet) 2 mg PO TID [facility] Last Admin: 08/03/21 15:09 Dose: 2 mg Documented by: Magnesium Citrate (Magnesium Citrate 300 Ml Solution) 300 ml PO DAILY PRN PRN Reason: constipation Magnesium Hydroxide (Milk Of Magnesia 30 Ml Oral.Susp) 30 ml PO Q12H PRN PRN Reason: Constipation Last Admin: 08/02/21 16:09 Dose: 30 ml Documented by: Melatonin (Melatonin 3 Mg Tablet) 3 mg PO BEDTIME [facility] Last Admin: 08/02/21 20:44 Dose: 3 mg Documented by: Patient Own Med- (Daily Probiotic) 1 each PO DAILY [facility] Last Admin: 08/03/21 08:46 Dose: 1 each Documented by: Oxcarbazepine (Oxcarbazepine 300 Mg Tablet) 600 mg PO BID [facility] Trazodone HCl (Trazodone Hcl 50 Mg Tablet) 50 mg PO BEDTIME PRN PRN Reason: Insomnia Last Admin: 08/01/21 21:28 Dose: 50 mg Documented by: Allergies Allergies Allergy/AdvReac Type Severity Reaction Status Date / Time No Known Allergies Allergy Verified 07/23/21 18:35 Assessment & Plan Assessment & Plan (1) Gisela: Status: Acute Code(s): F30.9 - Manic episode, unspecified (2) Bacterial vaginosis: Status: Acute Code(s): N76.0 - Acute vaginitis; B96.89 - Other specified bacterial agents as the cause of diseases classified elsewhere Assessment and Plan: GC and chlamydia and BV panel collected, will check the results, if positive will treat accordingly (3) SAB (spontaneous ): Status: Acute Code(s): O03.9 - Complete or unspecified spontaneous without complication Assessment and Plan: Urine test done in the office was negative. Discussed with the patient the different options of control including control pills/Nuvaring, Depo Medroxy Progesterone Acetate, IUD ( levonorgestrel, Copper). All the pros, cons, risks and benefits of each were discussed with the patient.? The patient decided to think about it and get back to us Plan The patient is a young adult female, referred from the community after her brother call crisis since she verbalized suicidal ideation.? Initially, she was uncooperative with crisis and she was not safe.? There was the report of suicidal ideation but later on, on admission we realized that the patient has the lucent thinking, disorganized thought process and paranoia.? She was started on Zyprexa.? 1. zyprexa changed to thorazine 07/31.? 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 trileptal 450 BID started 08/02.? ativan 2 mg with thorazine PRNs. trileptal increased to 600 BID as of 08/03. 2. dispo - pending stabilization. I spent ___25___ minutes with the patient and/or on the patient floor today, greater than?50% of which was spent counseling/coordinating care. Reason for contiued inpatient stay Substantial Risk for: inability to function and rapid decompensation
[2021-08-03 20:20] VITALS: BP 122/60; PULSE 119; RESP 19; TEMP 36.6; O2SAT 98
[2021-08-03] MEDS: chlorproMAZINE HCl 100 MG TABLET 300 MG PO (20:55)
[2021-08-03] MEDS: traZODone HCL 50 MG TABLET PO ×2 (20:55→22:25)
[2021-08-03] MEDS: Melatonin 3 MG TABLET PO (20:55)
[2021-08-03] MEDS: OXcarbazepine 300 MG TABLET 600 MG PO (20:56)
[2021-08-03] MEDS: Milk of Magnesia 30 ML ORAL.SUSP PO (22:26)
[2021-08-04 06:00] VITALS: BP 114/53; PULSE 123; RESP 16; TEMP 36.5; O2SAT 96
[2021-08-04] MEDS: LORazepam 1 MG TABLET 2 MG PO ×3 (08:12→21:07)
[2021-08-04] MEDS: OXcarbazepine 300 MG TABLET 600 MG PO ×2 (08:12→21:07)
[2021-08-04] MEDS: chlorproMAZINE HCl 100 MG TABLET PO ×2 (08:12→13:04)
[2021-08-04] MEDS: hydrOXYzine HCL 50 MG TABLET PO ×4 (08:16→22:11)
[2021-08-04] MEDS: Acetaminophen 325 MG TABLET 650 MG PO ×2 (13:04→19:18)
--- NOTE | 2021-08-04 14:09 | P.PNPSI_ITS ---
Subjective Subjective Date of Service: 08/04/21 Reason For Visit: MDD single episode, adjustment disorder Interim History: pt seen in her room, sleeping late morning. rousable to voice and light touch to the shoulder. rouses herself briefly but seems to be dozing off repeatedly. denies she is being sedated by medication, states her mind has slowed a bit. declines to have PRNs reduced in dosing. Md agrees to continue current regimen for now as she is appreciating some progress in slowing her mind. per staff, briefly attending groups. disagrees with bipolar diagnosis. thinks she only needs therapy and respite. taking all PRNs and saying it's not helping. Mental Status Exam Mental Status Exam Narrative: asleep, under blankets, rousable bu somnolent. cooperative with interview. no eye contact. no PMA/PMR. speech decr in amount, rate and tone, incr latency. thoughts linear in very brief and focused interaction. affect constricted and non-labile. no SI/HI/AVH expressed. Diagnostics Vital Signs (24Hr): Vital Signs - 24 hr 08/03/21 20:20 08/04/21 06:00 Temperature 97.9 F 97.7 F Pulse Rate 119 H 123 H Respiratory Rate 19 16 Blood Pressure 122/60 114/53 L Pulse Oximetry 98 96 BMI result Body Mass Index 20.5 Medications Medications Current Medications Acetaminophen (Acetaminophen 325 Mg Tablet) 650 mg PO Q6H PRN PRN Reason: Headache/Pain Mild Scale (1-3) Last Admin: 08/04/21 13:04 Dose: 650 mg Documented by: Al Hydroxide/Mg Hydroxide (Magnesium Hydrox/Alum Hydrox 30 Ml Oral.Susp) 30 ml PO Q6H PRN PRN Reason: Heartburn/Nausea Bisacodyl (Bisacodyl 5 Mg Tablet.) 10 mg PO DAILY PRN PRN Reason: Constipation Last Admin: 08/02/21 09:38 Dose: 10 mg Documented by: Chlorpromazine HCl (Chlorpromazine Hcl 100 Mg Tablet) 100 mg PO BID@0830,1330 [facility] Last Admin: 08/04/21 13:04 Dose: 100 mg Documented by: Chlorpromazine HCl (Chlorpromazine Hcl 100 Mg Tablet) 300 mg PO BEDTIME [facility] Last Admin: 08/03/21 20:55 Dose: 300 mg Documented by: Chlorpromazine HCl (Chlorpromazine Hcl 25 Mg Tablet) 50 mg PO Q4H PRN PRN Reason: agitation Last Admin: 08/03/21 21:16 Dose: 50 mg Documented by: Hydroxyzine HCl (Hydroxyzine Hcl 50 Mg Tablet) 50 mg PO Q4H PRN PRN Reason: Anxiety Last Admin: 08/04/21 13:04 Dose: 50 mg Documented by: Lorazepam (Lorazepam 1 Mg Tablet) 2 mg PO TID [facility] Last Admin: 08/04/21 08:12 Dose: 2 mg Documented by: Magnesium Citrate (Magnesium Citrate 300 Ml Solution) 300 ml PO DAILY PRN PRN Reason: constipation Magnesium Hydroxide (Milk Of Magnesia 30 Ml Oral.Susp) 30 ml PO Q12H PRN PRN Reason: Constipation Last Admin: 08/03/21 22:26 Dose: 30 ml Documented by: Melatonin (Melatonin 3 Mg Tablet) 3 mg PO BEDTIME [facility] Last Admin: 08/03/21 20:55 Dose: 3 mg Documented by: Patient Own Med- (Daily Probiotic) 1 each PO DAILY [facility] Last Admin: 08/04/21 08:13 Dose: 1 each Documented by: Oxcarbazepine (Oxcarbazepine 300 Mg Tablet) 600 mg PO BID [facility] Last Admin: 08/04/21 08:12 Dose: 600 mg Documented by: Trazodone HCl (Trazodone Hcl 50 Mg Tablet) 50 mg PO BEDTIME PRN PRN Reason: Insomnia Last Admin: 08/03/21 22:25 Dose: 50 mg Documented by: Allergies Allergies Allergy/AdvReac Type Severity Reaction Status Date / Time No Known Allergies Allergy Verified 07/23/21 18:35 Assessment & Plan Assessment & Plan (1) Gisela: Status: Acute Code(s): F30.9 - Manic episode, unspecified (2) Bacterial vaginosis: Status: Acute Code(s): N76.0 - Acute vaginitis; B96.89 - Other specified bacterial agents as the cause of diseases classified elsewhere Assessment and Plan: GC and chlamydia and BV panel collected, will check the results, if positive will treat accordingly (3) SAB (spontaneous ): Status: Acute Code(s): O03.9 - Complete or unspecified spontaneous without complication Assessment and Plan: Urine test done in the office was negative. Discussed with the patient the different options of control including control pills/Nuvaring, Depo Medroxy Progesterone Acetate, IUD ( levonorgestrel, Copper). All the pros, cons, risks and benefits of each were discussed with the patient.? The patient decided to think about it and get back to us Plan The patient is a young adult female, referred from the community after her brother call crisis since she verbalized suicidal ideation.? Initially, she was uncooperative with crisis and she was not safe.? There was the report of suicidal ideation but later on, on admission we realized that the patient has the lucent thinking, disorganized thought process and paranoia.? She was started on Zyprexa.? 1. zyprexa changed to thorazine 07/31.? 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 trileptal 450 BID started 08/02.? ativan 2 mg with thorazine PRNs. trileptal increased to 600 BID as of 08/03. appearing moderately sedated 08/04 but feeling some progress in slowing her thoughts. 2. dispo - pending stabilization. I spent ___20___ minutes with the patient and/or on the patient floor today, greater than?50% of which was spent counseling/coordinating care. Reason for contiued inpatient stay Substantial Risk for: harm to self, inability to function and rapid decompensation
[2021-08-04] MEDS: chlorproMAZINE HCl 25 MG TABLET 50 MG PO (15:33)
[2021-08-04 18:00] VITALS: BP 97/56; PULSE 116; TEMP 36.6; O2SAT 96
[2021-08-04] MEDS: Ibuprofen 400 MG TABLET PO (18:57)
[2021-08-04] MEDS: chlorproMAZINE HCl 100 MG TABLET 300 MG PO (21:07)
[2021-08-04] MEDS: traZODone HCL 50 MG TABLET PO ×2 (21:08→22:10)
[2021-08-04] MEDS: Melatonin 3 MG TABLET PO (21:08)
[2021-08-04 21:16] VITALS: BP 99/56; PULSE 110
[2021-08-05 06:00] VITALS: BP 110/58; PULSE 84; RESP 16; TEMP 36.6; O2SAT 96
[2021-08-05 07:00] VITALS: BMI 21.0
[2021-08-05] MEDS: LORazepam 1 MG TABLET 2 MG PO (08:42)
[2021-08-05] MEDS: OXcarbazepine 300 MG TABLET 600 MG PO ×2 (08:42→22:25)
[2021-08-05] MEDS: chlorproMAZINE HCl 100 MG TABLET PO (08:43)
[2021-08-05] MEDS: bisacodyL 5 MG TABLET.DR 10 MG PO (08:56)
[2021-08-05] MEDS: Acetaminophen 325 MG TABLET 650 MG PO ×2 (08:56→15:19)
--- NOTE | 2021-08-05 12:53 | HO.PSYCHPN ---
Subjective Subjective Date of Service: 08/05/21 Reason For Visit: MDD single episode, adjustment disorder Interim History: pt seen lying in her bed, c/o feeling sedated and heavy. SW present for interview. reports her thoughts have slowed down. informs pt that he will begin to taper thorazine and ativan, with which pt is in agreement. pt finds MD later on the unit and asks to meet again. she repeatedly requests something to pick her up a bit; demurs, saying we will stick to decreasing the sedating medications rather than adding additional stimulating medications. per staff, showered, isolative. no a.m. groups. guarded. denies depression. denies SI/HI/AVH. anx 8/10. visible in eves, not sedated. slept well overnight. endorsing racing thoughts. Mental Status Exam Mental Status Exam Narrative: awake, under blankets, somnolent. cooperative with interview. good eye contact. +PMR. speech decr in amount, rate and tone, incr latency. thoughts linear and logical, some perseveration apparent. affect blunted and non-labile. no SI/HI/AVH expressed. Diagnostics Vital Signs (24Hr): Vital Signs - 24 hr 08/04/21 18:00 08/04/21 21:16 Temperature 97.9 F Pulse Rate 116 H 110 H Blood Pressure 97/56 L 99/56 L Pulse Oximetry 96 BMI result Body Mass Index 20.5 Medications Medications Current Medications Acetaminophen (Acetaminophen 325 Mg Tablet) 650 mg PO Q6H PRN PRN Reason: Headache/Pain Mild Scale (1-3) Last Admin: 08/05/21 08:56 Dose: 650 mg Documented by: Al Hydroxide/Mg Hydroxide (Magnesium Hydrox/Alum Hydrox 30 Ml Oral.Susp) 30 ml PO Q6H PRN PRN Reason: Heartburn/Nausea Bisacodyl (Bisacodyl 5 Mg Tablet.) 10 mg PO DAILY PRN PRN Reason: Constipation Last Admin: 08/05/21 08:56 Dose: 10 mg Documented by: Chlorpromazine HCl (Chlorpromazine Hcl 100 Mg Tablet) 300 mg PO BEDTIME [facility] Last Admin: 08/04/21 21:07 Dose: 300 mg Documented by: Chlorpromazine HCl (Chlorpromazine Hcl 25 Mg Tablet) 50 mg PO Q4H PRN PRN Reason: agitation Last Admin: 08/04/21 15:33 Dose: 50 mg Documented by: Chlorpromazine HCl (Chlorpromazine Hcl 100 Mg Tablet) 75 mg PO BID@0830,1330 [facility] Hydroxyzine HCl (Hydroxyzine Hcl 50 Mg Tablet) 50 mg PO Q4H PRN PRN Reason: Anxiety Last Admin: 08/04/21 22:11 Dose: 50 mg Documented by: Ibuprofen (Ibuprofen 400 Mg Tablet) 400 mg PO Q6H PRN PRN Reason: Pain, Mild (Pain Scale 1-3) Last Admin: 08/04/21 18:57 Dose: 400 mg Documented by: Lorazepam (Lorazepam 0.5 Mg Tablet) 1.5 mg PO TID [facility] Magnesium Citrate (Magnesium Citrate 300 Ml Solution) 300 ml PO DAILY PRN PRN Reason: constipation Magnesium Hydroxide (Milk Of Magnesia 30 Ml Oral.Susp) 30 ml PO Q12H PRN PRN Reason: Constipation Last Admin: 08/03/21 22:26 Dose: 30 ml Documented by: Melatonin (Melatonin 3 Mg Tablet) 3 mg PO BEDTIME [facility] Last Admin: 08/04/21 21:08 Dose: 3 mg Documented by: Patient Own Med- (Daily Probiotic) 1 each PO DAILY [facility] Last Admin: 08/05/21 08:56 Dose: 1 each Documented by: Oxcarbazepine (Oxcarbazepine 300 Mg Tablet) 600 mg PO BID [facility] Last Admin: 08/05/21 08:42 Dose: 600 mg Documented by: Trazodone HCl (Trazodone Hcl 50 Mg Tablet) 50 mg PO BEDTIME PRN PRN Reason: Insomnia Last Admin: 08/04/21 22:10 Dose: 50 mg Documented by: Allergies Allergies Allergy/AdvReac Type Severity Reaction Status Date / Time No Known Allergies Allergy Verified 07/23/21 18:35 Assessment & Plan Assessment & Plan (1) Gisela: Status: Acute Code(s): F30.9 - Manic episode, unspecified (2) Bacterial vaginosis: Status: Acute Code(s): N76.0 - Acute vaginitis; B96.89 - Other specified bacterial agents as the cause of diseases classified elsewhere Assessment and Plan: GC and chlamydia and BV panel NEG (3) SAB (spontaneous ): Status: Acute Code(s): O03.9 - Complete or unspecified spontaneous without complication Assessment and Plan: Urine test done in the office was negative. Discussed with the patient the different options of control including control pills/Nuvaring, Depo Medroxy Progesterone Acetate, IUD ( levonorgestrel, Copper). All the pros, cons, risks and benefits of each were discussed with the patient.? The patient decided to think about it and get back to us Plan The patient is a young adult female, referred from the community after her brother call crisis since she verbalized suicidal ideation.? Initially, she was uncooperative with crisis and she was not safe.? There was the report of suicidal ideation but later on, on admission we realized that the patient has the lucent thinking, disorganized thought process and paranoia.? She was started on Zyprexa.? 1. zyprexa changed to thorazine 07/31.? 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 trileptal 450 BID started 08/02.? ativan 2 mg with thorazine PRNs. trileptal increased to 600 BID as of 08/03. appearing moderately sedated 08/04 but feeling some progress in slowing her thoughts, 08/05 somewhat sedated and thorazine and ativan dosing decreased modestly. 2. dispo - pending stabilization. I spent ___35___ minutes with the patient and/or on the patient floor today, greater than?50% of which was spent counseling/coordinating care. Reason for contiued inpatient stay Substantial Risk for: inability to function and rapid decompensation
[2021-08-05] MEDS: chlorproMAZINE HCl 100 MG TABLET 75 MG PO (15:20)
[2021-08-05] MEDS: LORazepam 0.5 MG TABLET 1.5 MG PO ×2 (15:21→22:24)
[2021-08-05] MEDS: hydrOXYzine HCL 50 MG TABLET PO (15:22)
[2021-08-05] MEDS: Milk of Magnesia 30 ML ORAL.SUSP PO (18:21)
[2021-08-05] MEDS: Ibuprofen 400 MG TABLET PO (18:21)
[2021-08-05] MEDS: Melatonin 3 MG TABLET PO (22:25)
[2021-08-05] MEDS: chlorproMAZINE HCl 100 MG TABLET 300 MG PO (22:25)
[2021-08-05 22:30] VITALS: BP 104/58; PULSE 96; RESP 16; TEMP 36.8; O2SAT 96
[2021-08-06] MEDS: chlorproMAZINE HCl 25 MG TABLET 50 MG PO ×3 (00:09→22:02)
[2021-08-06] MEDS: hydrOXYzine HCL 50 MG TABLET PO ×4 (00:09→22:58)
[2021-08-06 09:13] VITALS: BP 112/51; PULSE 91; RESP 16; TEMP 36.6; O2SAT 97
--- NOTE | 2021-08-06 09:16 | P.PNPSI_ITS ---
Subjective Subjective Date of Service: 08/06/21 Reason For Visit: MDD single episode, adjustment disorder Interim History: pt seen in her room resting in bed. easily rousable. appears somewhat sedated but declines any change in medications mgmt. reports feeling less sedated than yesterday before her thorazine and ativan doses were moderately reduced. states her thoughts continue to have slowed a bit. hopeful of leaving on monday. per staff, pt feels not much has changed as of yesterday. out of her room for art. eating and sleeping well. medication compliant. hoping for monday DC. now remaining in groups for the duration, whereas before she had left them shortly after arriving. Mental Status Exam Mental Status Exam Narrative: awake, under blankets, somnolent. cooperative with interview. good eye contact. +PMR. speech decr in amount, rate and tone, incr latency. thoughts linear and logical. affect blunted and non-labile. no SI/HI/AVH expressed. Diagnostics Vital Signs (24Hr): Vital Signs - 24 hr 08/05/21 22:30 08/06/21 09:13 Temperature 98.2 F 97.9 F Pulse Rate 96 91 Respiratory Rate 16 16 Blood Pressure 104/58 L 112/51 L Pulse Oximetry 96 97 BMI result Body Mass Index 21.0 Medications Medications Current Medications Acetaminophen (Acetaminophen 325 Mg Tablet) 975 mg PO Q6H PRN PRN Reason: Headache/Pain Mild Scale (1-3) Al Hydroxide/Mg Hydroxide (Magnesium Hydrox/Alum Hydrox 30 Ml Oral.Susp) 30 ml PO Q6H PRN PRN Reason: Heartburn/Nausea Bisacodyl (Bisacodyl 5 Mg Tablet.) 10 mg PO DAILY PRN PRN Reason: Constipation Last Admin: 08/05/21 08:56 Dose: 10 mg Documented by: Chlorpromazine HCl (Chlorpromazine Hcl 100 Mg Tablet) 300 mg PO BEDTIME [facility] Last Admin: 08/05/21 22:25 Dose: 300 mg Documented by: Chlorpromazine HCl (Chlorpromazine Hcl 25 Mg Tablet) 50 mg PO Q4H PRN PRN Reason: agitation Last Admin: 08/06/21 00:09 Dose: 50 mg Documented by: Chlorpromazine HCl (Chlorpromazine Hcl 100 Mg Tablet) 75 mg PO BID@0830,1330 [facility] Last Admin: 08/05/21 15:20 Dose: 75 mg Documented by: Hydroxyzine HCl (Hydroxyzine Hcl 50 Mg Tablet) 50 mg PO Q4H PRN PRN Reason: Anxiety Last Admin: 08/06/21 00:09 Dose: 50 mg Documented by: Lorazepam (Lorazepam 0.5 Mg Tablet) 1.5 mg PO TID [facility] Last Admin: 08/05/21 22:24 Dose: 1.5 mg Documented by: Magnesium Citrate (Magnesium Citrate 300 Ml Solution) 300 ml PO DAILY PRN PRN Reason: constipation Magnesium Hydroxide (Milk Of Magnesia 30 Ml Oral.Susp) 30 ml PO Q12H PRN PRN Reason: Constipation Last Admin: 08/05/21 18:21 Dose: 30 ml Documented by: Melatonin (Melatonin 3 Mg Tablet) 3 mg PO BEDTIME [facility] Last Admin: 08/05/21 22:25 Dose: 3 mg Documented by: Patient Own Med- (Daily Probiotic) 1 each PO DAILY [facility] Last Admin: 08/05/21 08:56 Dose: 1 each Documented by: Oxcarbazepine (Oxcarbazepine 300 Mg Tablet) 600 mg PO BID [facility] Last Admin: 08/05/21 22:25 Dose: 600 mg Documented by: Trazodone HCl (Trazodone Hcl 50 Mg Tablet) 50 mg PO BEDTIME PRN PRN Reason: Insomnia Last Admin: 08/04/21 22:10 Dose: 50 mg Documented by: Allergies Allergies Allergy/AdvReac Type Severity Reaction Status Date / Time No Known Allergies Allergy Verified 07/23/21 18:35 Assessment & Plan Assessment & Plan (1) Gisela: Status: Acute Code(s): F30.9 - Manic episode, unspecified (2) Bacterial vaginosis: Status: Acute Code(s): N76.0 - Acute vaginitis; B96.89 - Other specified bacterial agents as the cause of diseases classified elsewhere Assessment and Plan: GC and chlamydia and BV panel NEG (3) SAB (spontaneous ): Status: Acute Code(s): O03.9 - Complete or unspecified spontaneous without complication Assessment and Plan: Urine test done in the office was negative. Discussed with the patient the different options of control including control pills/Nuvaring, Depo Medroxy Progesterone Acetate, IUD ( levonorgestrel, Copper). All the pros, cons, risks and benefits of each were discussed with the patient.? The patient decided to think about it and get back to us Plan The patient is a young adult female, referred from the community after her brother call crisis since she verbalized suicidal ideation.? Initially, she was uncooperative with crisis and she was not safe.? There was the report of suicidal ideation but later on, on admission we realized that the patient has the lucent thinking, disorganized thought process and paranoia.? She was started on Zyprexa.? 1. zyprexa changed to thorazine 07/31.? 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 trileptal 450 BID started 08/02.? ativan 2 mg with thorazine PRNs. trileptal increased to 600 BID as of 08/03. appearing moderately sedated 08/04 but feeling some progress in slowing her thoughts, 08/05 somewhat sedated and thorazine and ativan dosing decreased modestly. 08/06 declines change in mgmt. 2. dispo - pending stabilization. I spent ___20___ minutes with the patient and/or on the patient floor today, greater than?50% of which was spent counseling/coordinating care. Reason for contiued inpatient stay Substantial Risk for: inability to function and rapid decompensation
[2021-08-06] MEDS: LORazepam 0.5 MG TABLET 1.5 MG PO ×2 (09:59→20:18)
[2021-08-06] MEDS: chlorproMAZINE HCl 25 MG TABLET 75 MG PO ×2 (09:59→13:27)
[2021-08-06] MEDS: OXcarbazepine 300 MG TABLET 600 MG PO ×2 (09:59→20:19)
[2021-08-06] MEDS: Milk of Magnesia 30 ML ORAL.SUSP PO (10:05)
[2021-08-06] MEDS: Acetaminophen 325 MG TABLET 975 MG PO ×2 (10:05→18:27)
[2021-08-06 20:18] VITALS: BP 119/73; PULSE 85; RESP 16; TEMP 36.4; O2SAT 97
[2021-08-06] MEDS: Melatonin 3 MG TABLET PO (20:19)
[2021-08-06] MEDS: chlorproMAZINE HCl 100 MG TABLET 300 MG PO (20:19)
[2021-08-06] MEDS: traZODone HCL 50 MG TABLET PO ×2 (22:02→22:58)
[2021-08-07] MEDS: chlorproMAZINE HCl 25 MG TABLET 50 MG PO ×2 (03:28→16:02)
[2021-08-07] MEDS: hydrOXYzine HCL 50 MG TABLET PO ×3 (03:29→19:29)
[2021-08-07] MEDS: bisacodyL 5 MG TABLET.DR 10 MG PO (04:36)
[2021-08-07 09:10] VITALS: BP 94/48; PULSE 93; RESP 18; TEMP 36.8; O2SAT 97
[2021-08-07] MEDS: OXcarbazepine 300 MG TABLET 600 MG PO ×2 (09:15→20:53)
[2021-08-07] MEDS: chlorproMAZINE HCl 25 MG TABLET 75 MG PO ×2 (09:15→12:48)
[2021-08-07] MEDS: Acetaminophen 325 MG TABLET 975 MG PO ×2 (09:31→16:02)
[2021-08-07] MEDS: LORazepam 0.5 MG TABLET 1.5 MG PO (09:31)
[2021-08-07] MEDS: buPROPion HCl XL 150 MG TAB.ER.24H PO (11:42)
[2021-08-07] MEDS: LORazepam 1 MG TABLET PO ×2 (15:58→20:53)
--- NOTE | 2021-08-07 18:46 | P.PNPSI_ITS ---
Subjective Subjective Date of Service: 08/07/21 Reason For Visit: MDD single episode, adjustment disorder Interim History: feels med changes have been beneficial to her. mind has slowed down but she is more awake. still focused on discharge on monday; ativan decreased a bit more from 1.5 TID to 1 TID. pt also requests an antidepressant; agrees to trial of wellbutrin. R/B discussed, including Sz and agitation, insomnia. per staff, unchanged in presentation. slept 11-3:30, then from 5 on. taking PRNs. up and about this morning. Mental Status Exam Mental Status Exam Narrative: awake, sitting in bed taking notes on the bible, not somnolent. cooperative with interview. good eye contact. no PMA/PMR. speech nml in amount, rate, tone, latency. thoughts linear and logical. affect more flexible and non- labile. no SI/HI/AVH expressed. Diagnostics Vital Signs (24Hr): Vital Signs - 24 hr 08/06/21 20:18 08/07/21 09:10 Temperature 97.6 F 98.3 F Pulse Rate 85 93 Respiratory Rate 16 18 Blood Pressure 119/73 94/48 L Pulse Oximetry 97 97 BMI result Body Mass Index 21.0 Medications Medications Current Medications Acetaminophen (Acetaminophen 325 Mg Tablet) 975 mg PO Q6H PRN PRN Reason: Headache/Pain Mild Scale (1-3) Last Admin: 08/07/21 16:02 Dose: 975 mg Documented by: Al Hydroxide/Mg Hydroxide (Magnesium Hydrox/Alum Hydrox 30 Ml Oral.Susp) 30 ml PO Q6H PRN PRN Reason: Heartburn/Nausea Bisacodyl (Bisacodyl 5 Mg Tablet.Dr) 10 mg PO DAILY PRN PRN Reason: Constipation Last Admin: 08/07/21 04:36 Dose: 10 mg Documented by: Bupropion HCl (Bupropion Hcl Xl 150 Mg Tab.Er.24h) 150 mg PO DAILY [facility] Last Admin: 08/07/21 11:42 Dose: 150 mg Documented by: Chlorpromazine HCl (Chlorpromazine Hcl 100 Mg Tablet) 300 mg PO BEDTIME [facility] Last Admin: 08/06/21 20:19 Dose: 300 mg Documented by: Chlorpromazine HCl (Chlorpromazine Hcl 25 Mg Tablet) 50 mg PO Q4H PRN PRN Reason: agitation Last Admin: 08/07/21 16:02 Dose: 50 mg Documented by: Chlorpromazine HCl (Chlorpromazine Hcl 25 Mg Tablet) 75 mg PO BID@0830,1330 [facility] Last Admin: 08/07/21 12:48 Dose: 75 mg Documented by: Hydroxyzine HCl (Hydroxyzine Hcl 50 Mg Tablet) 50 mg PO Q4H PRN PRN Reason: Anxiety Last Admin: 08/07/21 12:48 Dose: 50 mg Documented by: Lorazepam (Lorazepam 1 Mg Tablet) 1 mg PO TID [facility] Last Admin: 08/07/21 15:58 Dose: 1 mg Documented by: Magnesium Citrate (Magnesium Citrate 300 Ml Solution) 300 ml PO DAILY PRN PRN Reason: constipation Magnesium Hydroxide (Milk Of Magnesia 30 Ml Oral.Susp) 30 ml PO Q12H PRN PRN Reason: Constipation Last Admin: 08/06/21 10:05 Dose: 30 ml Documented by: Melatonin (Melatonin 3 Mg Tablet) 3 mg PO BEDTIME [facility] Last Admin: 08/06/21 20:19 Dose: 3 mg Documented by: Patient Own Med- (Daily Probiotic) 1 each PO DAILY [facility] Last Admin: 08/07/21 09:33 Dose: 1 each Documented by: Oxcarbazepine (Oxcarbazepine 300 Mg Tablet) 600 mg PO BID [facility] Last Admin: 08/07/21 09:15 Dose: 600 mg Documented by: Trazodone HCl (Trazodone Hcl 50 Mg Tablet) 50 mg PO BEDTIME PRN PRN Reason: Insomnia Last Admin: 08/06/21 22:58 Dose: 50 mg Documented by: Allergies Allergies Allergy/AdvReac Type Severity Reaction Status Date / Time No Known Allergies Allergy Verified 07/23/21 18:35 Assessment & Plan Assessment & Plan (1) Gisela: Status: Acute Code(s): F30.9 - Manic episode, unspecified (2) Bacterial vaginosis: Status: Acute Code(s): N76.0 - Acute vaginitis; B96.89 - Other specified bacterial agents as the cause of diseases classified elsewhere Assessment and Plan: GC and chlamydia and BV panel NEG (3) SAB (spontaneous ): Status: Acute Code(s): O03.9 - Complete or unspecified spontaneous without complication Assessment and Plan: Urine test done in the office was negative. Discussed with the patient the different options of control including control pills/Nuvaring, Depo Medroxy Progesterone Acetate, IUD ( levonorgestrel, Copper). All the pros, cons, risks and benefits of each were discussed with the patient.? The patient decided to think about it and get back to us Plan The patient is a young adult female, referred from the community after her brother call crisis since she verbalized suicidal ideation.? Initially, she was uncooperative with crisis and she was not safe.? There was the report of suicidal ideation but later on, on admission we realized that the patient has the lucent thinking, disorganized thought process and paranoia.? She was started on Zyprexa.? 1. zyprexa changed to thorazine 07/31.? 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 trileptal 450 BID started 08/02.? ativan 2 mg with thorazine PRNs. trileptal increased to 600 BID as of 08/03. appearing moderately sedated 08/04 but feeling some progress in slowing her thoughts, 08/05 somewhat sedated and thorazine and ativan dosing decreased modestly. 08/06 declines change in mgmt. 08/07 ativan decreased from 1.5 TID to 1 TID, wellbutrin 150 daily started. 2. dispo - pending stabilization. I spent __25____ minutes with the patient and/or on the patient floor today, greater than?50% of which was spent counseling/coordinating care. Reason for contiued inpatient stay Substantial Risk for: inability to function and rapid decompensation
[2021-08-07 20:50] VITALS: BP 116/66; PULSE 80; RESP 16; TEMP 36.5; O2SAT 99
[2021-08-07] MEDS: Melatonin 3 MG TABLET PO (20:53)
[2021-08-07] MEDS: traZODone HCL 50 MG TABLET PO (20:53)
[2021-08-07] MEDS: chlorproMAZINE HCl 100 MG TABLET 300 MG PO (20:53)
[2021-08-08] MEDS: traZODone HCL 50 MG TABLET PO ×3 (03:32→21:23)
[2021-08-08] MEDS: hydrOXYzine HCL 50 MG TABLET PO ×4 (03:32→19:58)
[2021-08-08] MEDS: LORazepam 1 MG TABLET PO ×3 (08:17→19:59)
[2021-08-08] MEDS: buPROPion HCl XL 150 MG TAB.ER.24H PO (08:17)
[2021-08-08 08:36] VITALS: BP 93/54; PULSE 92; RESP 18; TEMP 35.5; O2SAT 97
[2021-08-08] MEDS: OXcarbazepine 300 MG TABLET 600 MG PO ×2 (09:55→19:58)
[2021-08-08] MEDS: chlorproMAZINE HCl 25 MG TABLET 75 MG PO ×2 (09:56→14:34)
[2021-08-08] MEDS: Acetaminophen 325 MG TABLET 975 MG PO ×2 (11:43→17:33)
--- NOTE | 2021-08-08 16:58 | HO.PSYCHPN ---
Subjective Subjective Date of Service: 08/08/21 Reason For Visit: MDD single episode, adjustment disorder Interim History: feels wellbutrin making her mood much better and her more pleasant. she notes she remains somewhat irritable and believes others find her unpleasant. implores MD to increase her wellbutrin to 300 mg daily as of tomorrow, to which MD ultimately agrees. hoping for discharge to respite tomorrow. per staff, c/o dizziness all the time. med-compliant. slept intermittently, then well after 0330 after PRNs. Mental Status Exam Mental Status Exam Narrative: awake, ambulating on unit, not somnolent. cooperative with interview. excessive eye contact. no PMA/PMR. speech nml in amount, rate, tone, latency. thoughts linear and questionably logical. affect constricted and non-labile. no SI/HI/AVH expressed. Diagnostics Vital Signs (24Hr): Vital Signs - 24 hr 08/07/21 20:50 08/08/21 08:36 Temperature 97.7 F 96 F L Pulse Rate 80 92 Respiratory Rate 16 18 Blood Pressure 116/66 93/54 L Pulse Oximetry 99 97 BMI result Body Mass Index 21.0 Medications Medications Current Medications Acetaminophen (Acetaminophen 325 Mg Tablet) 975 mg PO Q6H PRN PRN Reason: Headache/Pain Mild Scale (1-3) Last Admin: 08/08/21 11:43 Dose: 975 mg Documented by: Al Hydroxide/Mg Hydroxide (Magnesium Hydrox/Alum Hydrox 30 Ml Oral.Susp) 30 ml PO Q6H PRN PRN Reason: Heartburn/Nausea Bisacodyl (Bisacodyl 5 Mg Tablet.) 10 mg PO DAILY PRN PRN Reason: Constipation Last Admin: 08/07/21 04:36 Dose: 10 mg Documented by: Bupropion HCl (Bupropion Hcl Xl 300 Mg Tab.Er.24h) 300 mg PO DAILY ROSA Chlorpromazine HCl (Chlorpromazine Hcl 100 Mg Tablet) 300 mg PO BEDTIME ROSA Last Admin: 08/07/21 20:53 Dose: 300 mg Documented by: Chlorpromazine HCl (Chlorpromazine Hcl 25 Mg Tablet) 50 mg PO Q4H PRN PRN Reason: agitation Last Admin: 08/07/21 16:02 Dose: 50 mg Documented by: Chlorpromazine HCl (Chlorpromazine Hcl 25 Mg Tablet) 75 mg PO BID@0830,1330 [facility] Last Admin: 08/08/21 14:34 Dose: 75 mg Documented by: Hydroxyzine HCl (Hydroxyzine Hcl 50 Mg Tablet) 50 mg PO Q4H PRN PRN Reason: Anxiety Last Admin: 08/08/21 15:50 Dose: 50 mg Documented by: Lorazepam (Lorazepam 1 Mg Tablet) 1 mg PO TID [facility] Last Admin: 08/08/21 15:46 Dose: 1 mg Documented by: Magnesium Citrate (Magnesium Citrate 300 Ml Solution) 300 ml PO DAILY PRN PRN Reason: constipation Magnesium Hydroxide (Milk Of Magnesia 30 Ml Oral.Susp) 30 ml PO Q12H PRN PRN Reason: Constipation Last Admin: 08/06/21 10:05 Dose: 30 ml Documented by: Melatonin (Melatonin 3 Mg Tablet) 3 mg PO BEDTIME [facility] Last Admin: 08/07/21 20:53 Dose: 3 mg Documented by: Patient Own Med- (Daily Probiotic) 1 each PO DAILY [facility] Last Admin: 08/08/21 08:15 Dose: 1 each Documented by: Oxcarbazepine (Oxcarbazepine 300 Mg Tablet) 600 mg PO BID [facility] Last Admin: 08/08/21 09:55 Dose: 600 mg Documented by: Trazodone HCl (Trazodone Hcl 50 Mg Tablet) 50 mg PO BEDTIME PRN PRN Reason: Insomnia Last Admin: 08/08/21 03:32 Dose: 50 mg Documented by: Allergies Allergies Allergy/AdvReac Type Severity Reaction Status Date / Time No Known Allergies Allergy Verified 07/23/21 18:35 Assessment & Plan Assessment & Plan (1) Gisela: Status: Acute Code(s): F30.9 - Manic episode, unspecified (2) Bacterial vaginosis: Status: Acute Code(s): N76.0 - Acute vaginitis; B96.89 - Other specified bacterial agents as the cause of diseases classified elsewhere Assessment and Plan: GC and chlamydia and BV panel NEG (3) SAB (spontaneous ): Status: Acute Code(s): O03.9 - Complete or unspecified spontaneous without complication Assessment and Plan: Urine test done in the office was negative. Discussed with the patient the different options of control including control pills/Nuvaring, Depo Medroxy Progesterone Acetate, IUD ( levonorgestrel, Copper). All the pros, cons, risks and benefits of each were discussed with the patient.? The patient decided to think about it and get back to us Plan The patient is a young adult female, referred from the community after her brother call crisis since she verbalized suicidal ideation.? Initially, she was uncooperative with crisis and she was not safe.? There was the report of suicidal ideation but later on, on admission we realized that the patient has the lucent thinking, disorganized thought process and paranoia.? She was started on Zyprexa.? 1. zyprexa changed to thorazine 07/31.? 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 trileptal 450 BID started 08/02.? ativan 2 mg with thorazine PRNs. trileptal increased to 600 BID as of 08/03. appearing moderately sedated 08/04 but feeling some progress in slowing her thoughts, 08/05 somewhat sedated and thorazine and ativan dosing decreased modestly. 08/06 declines change in mgmt. 08/07 ativan decreased from 1.5 TID to 1 TID, wellbutrin 150 daily started. 08/08 wellbutrin increase to 300 mg daily. 2. dispo - pending stabilization. I spent ___20___ minutes with the patient and/or on the patient floor today, greater than?50% of which was spent counseling/coordinating care. Reason for contiued inpatient stay Substantial Risk for: harm to self, inability to function and rapid decompensation
[2021-08-08] MEDS: chlorproMAZINE HCl 25 MG TABLET 50 MG PO (17:33)
[2021-08-08 18:00] VITALS: BP 115/63; PULSE 93; RESP 16; TEMP 36.3; O2SAT 99
[2021-08-08] MEDS: chlorproMAZINE HCl 100 MG TABLET 300 MG PO (19:58)
[2021-08-08] MEDS: Melatonin 3 MG TABLET PO (19:59)
[2021-08-08] MEDS: Magnesium Citrate 300 ML SOLUTION PO (21:49)
[2021-08-09] MEDS: bisacodyL 5 MG TABLET.DR 10 MG PO (03:51)
[2021-08-09] MEDS: hydrOXYzine HCL 50 MG TABLET PO ×3 (03:51→20:26)
[2021-08-09] MEDS: buPROPion HCl XL 300 MG TAB.ER.24H PO (08:26)
[2021-08-09] MEDS: OXcarbazepine 300 MG TABLET 600 MG PO (08:26)
[2021-08-09] MEDS: chlorproMAZINE HCl 25 MG TABLET 75 MG PO (08:27)
[2021-08-09] MEDS: LORazepam 1 MG TABLET PO (08:28)
[2021-08-09 08:52] VITALS: BP 107/58; PULSE 94; RESP 18; TEMP 36.2; O2SAT 97
[2021-08-09] MEDS: Acetaminophen 325 MG TABLET 975 MG PO ×2 (09:43→20:26)
--- NOTE | 2021-08-09 13:17 | HO.PSYCHPN ---
Subjective Subjective Date of Service: 08/09/21 Reason For Visit: MDD single episode, adjustment disorder Interim History: pt seen with DEJA. pt reports she is feeling OK and is looking forward to discharge to respite tomorrow. feels wellbutrin has been very helpful for her. agreeable to continue to taper ativan, will decrease to 0.5 mg TID today. also asks for thorazine to be decreased to 50 mg each during the day (still 300 mg at HS). suggests, in light of these dosing changes, that trileptal should be increased further to 750 BID, with which pt is in agreement. MD inquires as to the SI which was reported by staff. pt states she continues to have the thought i wish i were never born, but she is not actively suicidal and is not thinking of plans and has no intent. she is future-oriented in her [facility] and in being able to live with her grandparents soon rather than having to return to her mother's house. per staff, very happy with wellbutrin. visible on unit. spending time with select peers. c/o SI but denies depression. slept after 11 pm. compliant with all medications and received PRNs as well. Mental Status Exam Mental Status Exam Narrative: awake, lying in bed, not somnolent. cooperative with interview. excessive eye contact. no PMA/PMR. speech nml in amount, decr rate, flattened tone, nml latency. thoughts linear and questionably logical. affect constricted and non-labile. endorses passive SI, no intent or plan. no HI/AVH expressed. Diagnostics Vital Signs (24Hr): Vital Signs - 24 hr 08/08/21 18:00 08/09/21 08:52 Temperature 97.3 F 97.1 F Pulse Rate 93 94 Respiratory Rate 16 18 Blood Pressure 115/63 107/58 L Pulse Oximetry 99 97 BMI result Body Mass Index 21.0 Medications Medications Current Medications Acetaminophen (Acetaminophen 325 Mg Tablet) 975 mg PO Q6H PRN PRN Reason: Headache/Pain Mild Scale (1-3) Last Admin: 08/09/21 09:43 Dose: 975 mg Documented by: Al Hydroxide/Mg Hydroxide (Magnesium Hydrox/Alum Hydrox 30 Ml Oral.Susp) 30 ml PO Q6H PRN PRN Reason: Heartburn/Nausea Bisacodyl (Bisacodyl 5 Mg Tablet.Dr) 10 mg PO DAILY PRN PRN Reason: Constipation Last Admin: 08/09/21 03:51 Dose: 10 mg Documented by: Bupropion HCl (Bupropion Hcl Xl 300 Mg Tab.Er.24h) 300 mg PO DAILY [facility] Last Admin: 08/09/21 08:26 Dose: 300 mg Documented by: Chlorpromazine HCl (Chlorpromazine Hcl 100 Mg Tablet) 300 mg PO BEDTIME [facility] Last Admin: 08/08/21 19:58 Dose: 300 mg Documented by: Chlorpromazine HCl (Chlorpromazine Hcl 25 Mg Tablet) 50 mg PO Q4H PRN PRN Reason: agitation Last Admin: 08/08/21 17:33 Dose: 50 mg Documented by: Chlorpromazine HCl (Chlorpromazine Hcl 25 Mg Tablet) 50 mg PO BID@0830,1330 [facility] Hydroxyzine HCl (Hydroxyzine Hcl 50 Mg Tablet) 50 mg PO Q4H PRN PRN Reason: Anxiety Last Admin: 08/09/21 09:43 Dose: 50 mg Documented by: Lorazepam (Lorazepam 0.5 Mg Tablet) 0.5 mg PO TID [facility] Magnesium Citrate (Magnesium Citrate 300 Ml Solution) 300 ml PO DAILY PRN PRN Reason: constipation Last Admin: 08/08/21 21:49 Dose: 300 ml Documented by: Magnesium Hydroxide (Milk Of Magnesia 30 Ml Oral.Susp) 30 ml PO Q12H PRN PRN Reason: Constipation Last Admin: 08/06/21 10:05 Dose: 30 ml Documented by: Melatonin (Melatonin 3 Mg Tablet) 3 mg PO BEDTIME [facility] Last Admin: 08/08/21 19:59 Dose: 3 mg Documented by: Patient Own Med- (Daily Probiotic) 1 each PO DAILY [facility] Last Admin: 08/09/21 08:28 Dose: 1 each Documented by: Oxcarbazepine (Oxcarbazepine 150 Mg Tablet) 750 mg PO BID [facility] Trazodone HCl (Trazodone Hcl 50 Mg Tablet) 50 mg PO BEDTIME PRN PRN Reason: Insomnia Last Admin: 08/08/21 21:23 Dose: 50 mg Documented by: Allergies Allergies Allergy/AdvReac Type Severity Reaction Status Date / Time No Known Allergies Allergy Verified 07/23/21 18:35 Assessment & Plan Assessment & Plan (1) Gisela: Status: Acute Code(s): F30.9 - Manic episode, unspecified (2) Bacterial vaginosis: Status: Acute Code(s): N76.0 - Acute vaginitis; B96.89 - Other specified bacterial agents as the cause of diseases classified elsewhere Assessment and Plan: GC and chlamydia and BV panel NEG (3) SAB (spontaneous ): Status: Acute Code(s): O03.9 - Complete or unspecified spontaneous without complication Assessment and Plan: Urine test done in the office was negative. Discussed with the patient the different options of control including control pills/Nuvaring, Depo Medroxy Progesterone Acetate, IUD ( levonorgestrel, Copper). All the pros, cons, risks and benefits of each were discussed with the patient.? The patient decided to think about it and get back to us Plan The patient is a young adult female, referred from the community after her brother call crisis since she verbalized suicidal ideation.? Initially, she was uncooperative with crisis and she was not safe.? There was the report of suicidal ideation but later on, on admission we realized that the patient has the lucent thinking, disorganized thought process and paranoia.? She was started on Zyprexa.? 1. zyprexa changed to thorazine 07/31.? 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 trileptal 450 BID started 08/02.? ativan 2 mg with thorazine PRNs. trileptal increased to 600 BID as of 08/03. appearing moderately sedated 08/04 but feeling some progress in slowing her thoughts, 08/05 somewhat sedated and thorazine and ativan dosing decreased modestly. 08/06 declines change in mgmt. 08/07 ativan decreased from 1.5 TID to 1 TID, wellbutrin 150 daily started. 08/08 wellbutrin increase to 300 mg daily. ativan decreased to 0.5 mg TID and thorazine 75/75/300 --> 50/50/300 on 08/09. trileptal increased to 750 BID on 08/09. 2. dispo - planning for dispo to respite tomorrow. I spent ___25___ minutes with the patient and/or on the patient floor today, greater than?50% of which was spent counseling/coordinating care. Reason for contiued inpatient stay Substantial Risk for: rapid decompensation
[2021-08-09] MEDS: LORazepam 0.5 MG TABLET PO ×2 (14:27→20:26)
[2021-08-09] MEDS: chlorproMAZINE HCl 25 MG TABLET 50 MG PO ×2 (14:27→16:24)
[2021-08-09 18:00] VITALS: BP 106/60; PULSE 88; RESP 18; TEMP 36.2; O2SAT 98
[2021-08-09] MEDS: chlorproMAZINE HCl 100 MG TABLET 300 MG PO (20:26)
[2021-08-09] MEDS: traZODone HCL 50 MG TABLET PO ×2 (20:26→22:29)
[2021-08-09] MEDS: Melatonin 3 MG TABLET PO (20:26)
[2021-08-09] MEDS: OXcarbazepine 150 MG TABLET 750 MG PO (20:27)
[2021-08-09] MEDS: Ibuprofen 600 MG TABLET PO (22:29)
[2021-08-10] MEDS: hydrOXYzine HCL 50 MG TABLET PO ×2 (05:45→10:59)
[2021-08-10 06:00] VITALS: BP 99/56; PULSE 85; RESP 16; TEMP 36.6; O2SAT 98
[2021-08-10] MEDS: chlorproMAZINE HCl 25 MG TABLET 50 MG PO ×2 (08:30→13:03)
[2021-08-10] MEDS: LORazepam 0.5 MG TABLET PO (08:30)
[2021-08-10] MEDS: OXcarbazepine 150 MG TABLET 750 MG PO (08:30)
[2021-08-10] MEDS: buPROPion HCl XL 300 MG TAB.ER.24H PO (08:30)
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
[2021-08-10] MEDS: Acetaminophen 325 MG TABLET 975 MG PO (10:59)
--- NOTE | 2021-08-10 11:30 | PC.NURSE ---
Nurse to nurse report provided to Christian. Direct number provided in case of further questions.
== END 2021-08-10 13:06 | disposition home or self-care (01) | DRG 753 ==
PROVIDERS: Admitting Provider Psychiatry & Neurology Psychiatry; Visit Provider Psychiatry & Neurology Psychiatry
DX: F31.10 Bipolar disorder, current episode manic without psychotic features, unspecified (principal); R45.851 Suicidal ideations; N76.0 Acute vaginitis; Z56.0 Unemployment, unspecified; Z79.899 Other long term (current) drug therapy

== ENCOUNTER 2021-08-02 | Outpatient (REF) | payer MEDICAID, SELFPAY ==
[2021-08-03 11:48] LABS: CT PCR NOT DETECTED (Not Detect.); NG PCR NOT DETECTED (Not Detect.)
[2021-08-04 09:21] LABS: BV Int Neg Control Negative (Negative); BV Int Pos Control Positive (Positive)
== END 2021-08-02 00:01 | disposition home or self-care (01) ==
LOC: HO.LNP
PROVIDERS: Visit Provider Obstetrics & Gynecology
DX: N76.0 Acute vaginitis (principal)
CPT/HCPCS: 87480; 87491; 87510; 87591; 87660